=== PATIENT | male | born 1970 | race Caucasian/White ===

== ENCOUNTER 2020-12-08 08:05 | Outpatient (REF) | payer MEDICAID, SELFPAY ==
[2020-12-08 11:52] LABS: Alanine Aminotransferase 32 U/L (0-40); Albumin Level 4.7 g/dL (3.5-5.0); Alkaline Phosphatase 96 U/L (39-117); Anion Gap 17 (12-20); Aspartate Amino Transferase 21 U/L (5-37); Bilirubin Total 0.6 mg/dL (0.0-1.0); Blood Urea Nitrogen 21 mg/dL (9-16); Calcium 9.4 mg/dL (8.4-10.2); Carbon Dioxide 26 mmol/L (22-29); Chloride 98 mmol/L (96-108); Cholesterol 179 mg/dL; Estimated Glomerular Filt Rate > 60; Glucose Fasting 369 mg/dL (60-99); HDL Cholesterol 38 mg/dL; LDL Cholesterol Calculated 86 mg/dl; Potassium 4.7 mmol/L (3.3-5.1); Sodium 136 mmol/L (135-145); Total Protein 7.3 g/dL (6.5-8.0); Triglycerides 275 mg/dL
[2020-12-08 11:53] LABS: Microalbum/Creatinine Ratio Ur 49.5 ug/mg cr
[2020-12-08 11:56] LABS: Hemoglobin A1c % > 14.0 %
[2020-12-08 11:57] LABS: Prostate Specific Antigen Scr 0.29 ng/mL (<0.05-4.0); TSH reflex Free T4 0.89 uIU/mL (0.32-4.0)
== END 2020-12-08 08:06 | disposition home or self-care (01) ==
LOC: HO.HMGCLDS 08:05
PROVIDERS: PCP Nurse Practitioner Family; Visit Provider Nurse Practitioner Family
DX: E11.9 Type 2 diabetes mellitus without complications (principal); N39.43 Post-void dribbling; Z12.5 Encounter for screening for malignant neoplasm of prostate
CPT/HCPCS: 36415; 80053; 80061; 82043; 83036; 84153; 84443

== ENCOUNTER 2021-12-10 11:03 | Outpatient (REF) | payer OTHER, SELFPAY ==
[2021-12-10 13:55] LABS: Appearance Urine CLEAR; Color Urine YELLOW; Glucose Urine UA >=1000 MG/DL (NEG); Leukocyte Esterase Urine NEG (NEG); Nitrite Urine NEG (NEG); Specific Gravity - Urine 1.025 (1.005-1.025); Urine Blood NEG (NEG); Urine Ketones 15 MG/DL (NEG); Urine Protein NEG (NEG-TRACE)
[2021-12-10 14:00] LABS: Estimated Average Glucose 352 mg/dL; Hemoglobin A1c % 13.9 %
[2021-12-10 14:05] LABS: Alanine Aminotransferase 25 U/L (0-40); Albumin Level 4.3 g/dL (3.5-5.0); Alkaline Phosphatase 74 U/L (39-117); Anion Gap 11 (12-20); Aspartate Amino Transferase 18 U/L (5-37); Bilirubin Total 0.7 mg/dL (0.0-1.0); Blood Urea Nitrogen 12 mg/dL (9-16); Calcium 9.4 mg/dL (8.4-10.2); Carbon Dioxide 29 mmol/L (22-29); Chloride 102 mmol/L (96-108); Cholesterol 209 mg/dL; Estimated Glomerular Filt Rate > 60; Glucose Fasting 304 mg/dL (60-99); HDL Cholesterol 39 mg/dL; LDL Cholesterol Calculated 141 mg/dl; Potassium 4.2 mmol/L (3.3-5.1); Sodium 138 mmol/L (135-145); Total Protein 6.7 g/dL (6.5-8.0); Triglycerides 148 mg/dL
[2021-12-10 14:08] LABS: RBC Urine 0-2 /HPF (0); Squamous Epithelial Cell Urine TRACE /LPF; WBC Urine 0-2 /HPF (0-4)
[2021-12-10 14:09] LABS: Creatinine Urine 78.74 mg/dL; Microalbum/Creatinine Ratio Ur 10.1 ug/mg cr
[2021-12-10 14:31] LABS: TSH reflex Free T4 1.11 uIU/mL (0.32-4.0)
== END 2021-12-10 11:04 | disposition home or self-care (01) ==
LOC: HO.HMGCLDS 11:03
PROVIDERS: Visit Provider Nurse Practitioner Family
DX: Z12.5 Encounter for screening for malignant neoplasm of prostate (principal); E11.65 Type 2 diabetes mellitus with hyperglycemia
CPT/HCPCS: 36415; 80053; 80061; 81001; 81003; 82043; 83036; 84153; 84443

== ENCOUNTER → 2022-02-10 11:35 | Outpatient (BNVA) | payer OTHER, SELFPAY | PROVIDERS: PCP Nurse Practitioner Family; Visit Provider Physician Assistant | DX: Z01.818 Encounter for other preprocedural examination (principal); Z86.010 Personal history of colon polyps; Z80.0 Family history of malignant neoplasm of digestive organs | CPT/HCPCS: 99202 ==

== ENCOUNTER 2022-03-11 12:06 | Outpatient (REF) | payer OTHER, SELFPAY ==
[2022-03-11 13:58] LABS: MANUAL DIFF FLAG NO
[2022-03-11 14:14] LABS: Appearance Urine CLEAR; Color Urine YELLOW; Glucose Urine UA >=1000 MG/DL (NEG); Leukocyte Esterase Urine NEG (NEG); Nitrite Urine NEG (NEG); Specific Gravity - Urine 1.025 (1.005-1.025); Urine Blood NEG (NEG); Urine Ketones NEG (NEG); Urine Protein NEG (NEG-TRACE)
[2022-03-11 14:25] LABS: Basophils Absolute Auto 0.1 X10*3/uL (0.0-0.2); Eosinophils Absolute Auto 0.1 X10*3/uL (0.0-0.4); Eosinophils Percent Auto 0.9 % (0-4); Hematocrit 49.6 % (42.0-52.0); Hemoglobin 16.8 g/dl (14.0-18.0); Imm Gran Abs Auto 0.02 X10*3/uL (0.00-0.03); Imm Gran Pct Auto 0.2 % (0.0-0.4); Lymphocytes Absolute Auto 2.6 X10*3/uL (1.2-4.9); Lymphocytes Percent Auto 32.6 % (20-40); Mean Corpuscular HGB Conc 33.9 g/dl (31.0-36.0); Mean Corpuscular Hemoglobin 30.7 pg (27.0-33.0); Mean Corpuscular Volume 90.5 fL (80.0-98.0); Mean Platelet Volume 10.8 fL (9.4-12.4); Monocytes Absolute Auto 0.6 X10*3/uL (0.1-1.2); Monocytes Percent Auto 7.1 % (2-11); Neutrophils Absolute Auto 4.7 x10*3/uL (2.0-8.3); Neutrophils Percent Auto 58.2 % (45-73); Platelet Count 298 X10*3/uL (160-400); Red Blood Count 5.48 X10*6/uL (4.60-5.80); Red Cell Distribution Width 12.3 % (11.0-16.0); White Blood Count 8.1 X10*3/uL (4.8-10.8)
[2022-03-11 14:29] LABS: Estimated Average Glucose 206 mg/dL; Hemoglobin A1c % 8.8 %
[2022-03-11 14:32] LABS: RBC Urine 0 /HPF (0); Squamous Epithelial Cell Urine TRACE /LPF; WBC Urine 0-2 /HPF (0-4)
[2022-03-11 14:39] LABS: Alanine Aminotransferase 23 U/L (0-40); Albumin Level 4.7 g/dL (3.5-5.0); Alkaline Phosphatase 62 U/L (39-117); Anion Gap 13 (12-20); Aspartate Amino Transferase 19 U/L (5-37); Bilirubin Total 0.6 mg/dL (0.0-1.0); Blood Urea Nitrogen 14 mg/dL (9-16); Calcium 9.8 mg/dL (8.4-10.2); Carbon Dioxide 26 mmol/L (22-29); Chloride 106 mmol/L (96-108); Cholesterol 141 mg/dL; Estimated Glomerular Filt Rate > 60; Glucose Fasting 117 mg/dL (60-99); HDL Cholesterol 42 mg/dL; LDL Cholesterol Calculated 82 mg/dl; Potassium 4.4 mmol/L (3.3-5.1); Sodium 141 mmol/L (135-145); Total Protein 7.2 g/dL (6.5-8.0); Triglycerides 86 mg/dL
[2022-03-11 15:01] LABS: TSH reflex Free T4 1.78 uIU/mL (0.32-4.0)
== END 2022-03-11 12:07 | disposition home or self-care (01) ==
LOC: HO.HMGCLDS 12:06
PROVIDERS: Visit Provider Nurse Practitioner Family
DX: E11.65 Type 2 diabetes mellitus with hyperglycemia (principal)
CPT/HCPCS: 36415; 80053; 80061; 81001; 81003; 83036; 84443; 85025

== ENCOUNTER 2022-05-10 08:11 | Outpatient (REF) | payer OTHER, SELFPAY ==
[2022-05-10 11:45] LABS: Appearance Urine Turbid; Color Urine Yellow; Glucose Urine UA 500 mg/dL (Negative); Leukocyte Esterase Urine Negative (Negative); Nitrite Urine Negative (Negative); PH 5.5 (5.0-9.0); Specific Gravity - Urine 1.025 (1.005-1.025); Urine Blood Negative (Negative); Urine Ketones Negative (Negative); Urine Protein Negative (Neg-Trace)
== END 2022-05-10 08:12 | disposition home or self-care (01) ==
LOC: HO.HMGCLDS 08:11
PROVIDERS: PCP Nurse Practitioner Family; Visit Provider Nurse Practitioner Family
DX: E11.65 Type 2 diabetes mellitus with hyperglycemia (principal)
CPT/HCPCS: 81003

== ENCOUNTER 2022-09-27 09:10 | Day surgery (SDC) | payer OTHER, SELFPAY ==
[2022-09-21 09:44] VITALS: BMI 26.9
[2022-09-27 09:39] VITALS: BP 133/75; PULSE 81; RESP 16; TEMP 36.2; O2SAT 98; BMI 27.1
--- NOTE | 2022-09-27 09:50 | HO.ANESPROP2 ---
HPI - Anesthesia Eval Consult details Narrative: 52 yo male patient for screening colonoscopy [facility] Active Problems Active Problems: All Active Problems (Updated 05/12/22 @ 08:34 by Kota Mcclure [facility]) Screening PSA (prostate specific antigen) (Acute) Dribbling following urination (Acute) Uncontrolled diabetes mellitus (Acute) Screening for colon cancer (Acute) History of adenomatous polyp of colon (Acute) Weak urinary stream (Acute) Type 2 diabetes mellitus (Acute) Past Medical History Medical History (Updated 05/12/22 @ 08:34 by Kota Mcclure [facility]) Dyslipidemia Sciatica, right side Type 2 diabetes mellitus Family History Family History Father Colon cancer Alzheimer disease Enlarged prostate Mother Diabetes Family history of problems with anesthesia: No Surgical History Surgical History (Updated 09/21/22 @ 09:43 by Josephine Mcdaniel RN) H/O colonoscopy History of esophagogastroduodenoscopy (EGD) History of Problems with Anesthesia: No Social History Social History Housing: House Alcohol intake: never Patient Tobacco Use Status: Never used Tobacco e-Cigarette/Vaping Use: Never Used Second Hand Smoke Exposure: Yes Use of substances other than those prescribed or required for medical reasons: No Advance Directives: No Advance Directives Information Provided: Yes service: No Current occupational status: employed 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[employer] Current occupational exposures/hazards: No Cognitive needs: No Hearing needs: No Vision needs: No Meds Allergies Allergy/AdvReac Type Severity Reaction Status Date / Time No Known Allergies Allergy Verified 03/07/22 10:58 [No Known Allergies*] Active Medications: Current Medications Lactated Ringer's (Lr) 1,000 mls @ 50 mls/hr IVCONT .Q20H [facility] Home Medications Medication Instructions Recorded Confirmed Last Taken Type metformin 1,000 mg tablet 1,000 mg PO BID 06/08/21 09/21/22 Unknown History Exam Exam Date and Time: September 27, 2022 0950 Height,Weight and Vital Signs: Height 5 ft 10 in Weight 85.729 kg Last Vital Signs Temp 97.2 F 01/31/23 09:39 Pulse 81 09/27/22 09:39 Resp 16 09/27/22 09:39 BP 133/75 09/27/22 09:39 Pulse Ox 98 09/27/22 09:39 O2 Del Method 09/27/22 09:39 Pertinent Lab Results Pertinent Lab Results: Lab Results 09/27/22 Range/Units 09:28 POC Glucose 241 H (60-115) mg/dL Airway Mallampati Class: II TM Dist: >3cm Neck ROM: Full Loose/Missing/Broken Teeth: No (Denies broken, loose, missing teeth) Heart: RRR Lungs: CTAB Assessment and Plan Assessment Anesthesia Assessment: Anesthesia Plan Discussed and Chart Reviewed Final Anesthetic Review Family History of Problems with Anesthesia: No History of Problems with Anesthesia: No NPO: Yes ASA Class: II Final Preanesthetic Review: No Changes in Pt Med Stat, Meds/Allgs Chart Reviewed, Consent Obtained/Reviewed and Anes Risks/Benef Reviewed Patient Risk: Intermediate Procedure Risk: Low Assessment/Block/Sedation in SS: Assess/Block/Sedation-SS Anesthetic Plan Anesthetic Plan: MAC: Disposition: Standard PACU
[2022-09-27] MEDS: Lactated Ringers 1,000 ML 50 ML IVCONT (09:51)
--- NOTE | 2022-09-27 09:51 | MHC.SHP ---
Pre-Procedural Eval Section A Date of Service: 09/27/22 Section B Chief Complaint: hx colonic polyps,screening Relevant Family History (Specify if Yes): No Relevant Social History: None Present Medications: see Short Stay Collaborative assessment Medical History: Significant History (Dyslipidemia Sciatica, right side) History of Previous Operations: No relevant previous surgery Allergies: Allergies Allergy/AdvReac Type Severity Reaction Status Date / Time No Known Allergies Allergy Verified 03/07/22 10:58 [No Known Allergies*] Review of Systems Sugical H&P ROS: Negative: Constitution, Cardiovascular, Respiratory, Neurological, Psychiatric, Hem-Onc, Allergic/Immunologic, Gastrointestinal, Genitourinary, Musculoskeletal, Integumentary, Endocrine and Eyes/Ears/Nose/Throat Exam Surgical H&P Exam: Normal: HEENT, Normal: Heart, Normal: Lungs, Normal: Extremities, Normal: Abdomen, Normal: Skin and Normal: Neurological Plan Diagnosis/Plan: Unchanged I have reviewed the history and physical and performed a pertinent physical examination on my patient. No changes have occurred unless specified. Time Spent With Patient Time: Total time managing care of this patient today ____ minutes.
[2022-09-27 09:59] LABS: Glucose, Whole Blood 241 mg/dL (60-115)
--- NOTE | 2022-09-27 10:04 | P.OP_ITS ---
Operative Note Operative Note Date of Service: 09/27/22 Narrative: Operative Information Procedure Description: Colonoscopy Indication: screening, hx of polyps Anesthesia: MAC COLONOSCOPY Instrument: Olympus variable stiffness adult scope 190L Colonoscopy Monitoring: Vital signs and clinical assessment, continuous EKG monitoring, Pulse oximetry, Carbon Dioxide monitoring and blood pressure monitoring were done throughout the procedure. Colon withdrawal time was 11 minutes. Procedure: The patient was placed in the left lateral decubitis position and pre-procedure medications were administered. After a digital rectal examination of the ano-rectum, the video colonoscope was inserted into the rectum and advanced through the colon to the cecum/TI. The colonoscope was slowly withdrawn in a retrograde panoramic fashion and the colon mucosa was carefully examined including a retroflexed view of the rectum. Findings and interventions are described below. Procedure Difficulty: easy Findings: Terminal Ileum-normal Cecum:normal Ascending Colon: normal Transverse Colon -normal Descending Colon:normal Sigmoid Colon: 5-7 mm sessile polyp removed with cold forceps Rectum: Retroflexion with small internal hemorrhoids, grade I, 7-8 mm sessile polyp removed with cold forceps Anorectum - normal Colon preparation: [place] Bowel Preparation Scale Right colon; 2 Transverse colon: 2 Left colon; 1-2 (0 = Unprepared colon segment with mucosa not seen due to solid stool that cannot be cleared. 1 = Portion of mucosa of the colon segment seen, but other areas of the colon segment not well seen due to staining, residual stool and/or opaque liquid. 2 = Minor amount of residual staining, small fragments of stool and/or opaque liquid, but mucosa of colon segment seen well. 3 = Entire mucosa of colon segment seen well with no residual staining, small fragments of stool or opaque liquid) Impression and Post Procedure Diagnosis: polyps internal hemorrhoids Plan: High fiber diet leaflet Avoid straining at stool, epsom salts and sitz bath, anusol supps or cream Repeat Colonoscopy in 2-3 years due to small polyps and fair prep on the left side or earlier if clinically indicated Above findings were reviewed with the patient and relevant handouts were provided if indicated.
[2022-09-27 10:26] VITALS: BP 104/63; PULSE 76; RESP 19; TEMP 36.6; O2SAT 98
[2022-09-27 10:41] VITALS: BP 122/82; PULSE 75; RESP 14; TEMP 36.2; O2SAT 98
== END 2022-09-27 11:16 | disposition home or self-care (01) ==
PROVIDERS: PCP Nurse Practitioner Family; Visit Provider Internal Medicine Gastroenterology
PROC: 0DJD8ZZ Inspection of Lower Intestinal Tract, Via Natural or Artificial Opening Endoscopic (ICD-10-PCS; CPT 45378; principal; 2022-09-27 10:20)
DX: Z12.11 Encounter for screening for malignant neoplasm of colon (principal); Z86.010 Personal history of colon polyps; Z80.0 Family history of malignant neoplasm of digestive organs; D12.5 Benign neoplasm of sigmoid colon; D12.8 Benign neoplasm of rectum; K64.0 First degree hemorrhoids; E78.5 Hyperlipidemia, unspecified; E11.8 Type 2 diabetes mellitus with unspecified complications; Z79.4 Long term (current) use of insulin; Z79.899 Other long term (current) drug therapy
CPT/HCPCS: 45380; 82947; 88305

== ENCOUNTER 2022-11-02 14:04 | Outpatient (REF) | payer OTHER, SELFPAY ==
[2022-11-02 16:27] LABS: MANUAL DIFF FLAG NO
[2022-11-02 16:32] LABS: Basophils Absolute Auto 0.1 X10*3/uL (0.0-0.2); Basophils Percent Auto 0.9 % (0-2); Eosinophils Absolute Auto 0.1 X10*3/uL (0.0-0.4); Eosinophils Percent Auto 1.7 % (0-4); Hematocrit 47.7 % (42.0-52.0); Hemoglobin 16.7 g/dl (14.0-18.0); Imm Gran Abs Auto 0.02 X10*3/uL (0.00-0.03); Imm Gran Pct Auto 0.2 % (0.0-0.4); Lymphocytes Absolute Auto 2.8 X10*3/uL (1.2-4.9); Lymphocytes Percent Auto 33.7 % (20-40); Mean Corpuscular Volume 88.5 fL (80.0-98.0); Mean Platelet Volume 11.2 fL (9.4-12.4); Monocytes Absolute Auto 0.5 X10*3/uL (0.1-1.2); Neutrophils Absolute Auto 4.8 x10*3/uL (2.0-8.3); Neutrophils Percent Auto 57.5 % (45-73); Platelet Count 277 X10*3/uL (160-400); Red Blood Count 5.39 X10*6/uL (4.60-5.80); Red Cell Distribution Width 12.1 % (11.0-16.0); White Blood Count 8.4 X10*3/uL (4.8-10.8)
[2022-11-02 17:07] LABS: Alanine Aminotransferase 33 U/L (0-40); Albumin Level 4.4 g/dL (3.5-5.0); Alkaline Phosphatase 60 U/L (39-117); Anion Gap 13 (12-20); Aspartate Amino Transferase 23 U/L (5-37); Bilirubin Total 0.9 mg/dL (0.0-1.0); Blood Urea Nitrogen 12 mg/dL (9-16); Calcium 9.4 mg/dL (8.4-10.2); Carbon Dioxide 28 mmol/L (22-29); Chloride 103 mmol/L (96-108); Cholesterol 127 mg/dL; Estimated Glomerular Filt Rate > 60; Glucose Fasting 195 mg/dL (60-99); HDL Cholesterol 34 mg/dL; LDL Cholesterol Calculated 67 mg/dl; Potassium 4.3 mmol/L (3.3-5.1); Sodium 140 mmol/L (135-145); Total Protein 6.5 g/dL (6.5-8.0); Triglycerides 132 mg/dL
[2022-11-02 17:20] LABS: Appearance Urine Clear; Color Urine Dark Yellow; Glucose Urine UA 100 mg/dL (Negative); Leukocyte Esterase Urine Negative (Negative); Nitrite Urine Negative (Negative); PH 6.5 (5.0-9.0); Specific Gravity - Urine >= 1.030 (1.005-1.025); Urine Blood Negative (Negative); Urine Ketones Trace mg/dL (Negative); Urine Protein Negative (Neg-Trace)
[2022-11-02 17:27] LABS: Prostate Specific Antigen Scr 0.39 ng/mL (<0.05-4.0)
[2022-11-02 17:56] LABS: Creatinine Urine 252.07 mg/dL; Microalbum/Creatinine Ratio Ur 6.7 ug/mg cr
== END 2022-11-02 14:05 | disposition home or self-care (01) ==
LOC: HO.HMGCLDS 14:04
PROVIDERS: PCP Nurse Practitioner Family; Visit Provider Nurse Practitioner Family
DX: Z12.5 Encounter for screening for malignant neoplasm of prostate (principal); E11.9 Type 2 diabetes mellitus without complications
CPT/HCPCS: 36415; 80053; 80061; 81003; 82043; 84153; 84443; 85025

== ENCOUNTER 2023-03-03 13:40 | Outpatient (REF) | payer OTHER, SELFPAY | END 2023-03-03 13:41 | disposition home or self-care (01) | LOC: HO.LAB 13:40 | PROVIDERS: PCP Nurse Practitioner Family; Visit Provider Nurse Practitioner Family | DX: E11.65 Type 2 diabetes mellitus with hyperglycemia (principal) | CPT/HCPCS: 36415; 80053; 80061; 81001; 83036; 85025 ==

== ENCOUNTER 2023-03-08 15:13 | Outpatient (REF) | payer OTHER, SELFPAY ==
--- NOTE | ~2023-03-08 | US_ITS ---
EXAMINATION: US ABDOMEN COMPLETE CLINICAL INFORMATION: Abnormal levels of other serum enzymes. COMPARISON: Renal ultrasound 12/19/2014. TECHNIQUE: Real-time imaging of the abdominal viscera. FINDINGS: PANCREAS: Normal. ABDOMINAL AORTA: The proximal, mid, and distal segments are normal in caliber. INFERIOR VENA CAVA: Visualized portions are normal. LIVER: The liver is normal in size. The liver contour is normal. Increased hepatic echogenicity which can be seen in the setting of hepatic steatosis or underlying liver disease. No focal hepatic lesion. There is no intrahepatic biliary duct dilatation seen. GALLBLADDER: Normal. The gallbladder is physiologically distended without evidence of stones, sludge, polyps, wall thickening or pericholecystic fluid. COMMON BILE DUCT: Normal in caliber measuring 0.3 cm in diameter. RIGHT KIDNEY: Normal. No hydronephrosis. No renal calculi or focal parenchymal lesions. The kidney measures 10.5 cm in maximum dimension. LEFT KIDNEY: Normal. No hydronephrosis. No renal calculi or focal parenchymal lesions. The kidney measures 12.3 cm in maximum dimension. SPLEEN: Normal. The spleen measures 11.0 cm in maximum dimension. FREE FLUID: None. US/US abdomen complete IMPRESSION: Increased hepatic echogenicity which can be seen in the setting of hepatic steatosis or underlying liver disease.
== END 2023-03-08 15:14 | disposition home or self-care (01) ==
LOC: HO.HMGCX 15:13
PROVIDERS: Visit Provider Nurse Practitioner Family
DX: R74.8 Abnormal levels of other serum enzymes (principal)
CPT/HCPCS: 76700

== ENCOUNTER 2023-05-08 13:19 | Outpatient (AMB) | payer OTHER, SELFPAY ==
[2023-05-08 13:56] VITALS: BP 126/80; PULSE 101; O2SAT 96; BMI 29.3
--- NOTE | 2023-05-08 13:56 | A.OFFPC_ITS ---
Vital Signs 05/08/23 13:56 Height 5 ft 10 in Weight 204 lb 6 oz BMI 29.3 BP 126/80 Blood Pressure Location Rt brachial Position Sitting Pulse 101 H Pulse Source Pulse Oximeter Pulse Oximetry (%) 96 Oxygen Delivery Method Room Air Intake Visit Reasons: PE Allergies No Known Allergies [No Known Allergies*] Allergy (Verified 05/08/23 13:59) Medication List - Last Reconciled 05/08/23 by CHITRA ErnstP- alcohol swabs (Alcohol Prep Pads) 1 pad topical BID atorvastatin 10 mg PO BEDTIME 90 days blood sugar diagnostic (FreeStyle Lite Strips) Use to check blood sugar twice daily, fasting blood sugar in morning and a random sugar during the day blood-glucose meter (FreeStyle Lite Meter kit) Use to check blood sugar twice daily, fasting blood sugar in morning and a random sugar during the day lancets (FreeStyle Lancets) Use to check blood sugar twice daily, fasting blood sugar in morning and a random sugar during the day Lantus Solostar U-100 Insulin (insulin glargine) 50 units (0.5 mL) subcut QPM NS lisinopril 5 mg PO DAILY 90 days metformin 1,000 mg PO BID multivitamin (Daily Multi-Vitamin tablet) 1 tab PO DAILY pen needle, diabetic (Pen Needle) inject once a day semaglutide (Ozempic) 1 mg (0.8 mL) subcut QWEEK 30 days Tobacco use date assessed: 05/08/23 Dental Screening Dental Screen Date: 05/08/23 Did you have a dental visit in the last 12 months?: No Did you have a dental problem in the last 6 months where you did not have access to dental care?: No Was dental information given to patient?: No HPI PE HPI Details Pt is here for a PE. Will order labs. Colon screen is up to date. PSA is up to date. Denies dribbling with urination and nocturia, though he does not feel like he is emptying his bladder completely. Pt is a diabetic, on an CECILY and a statin. Last A1C was 10.2, microalbumin is up to date. Denies polyuria, polydipsia, and neuropathy. Pt denies any signs and symptoms of hypoglycemia and does know how to correct it. Will increase lantus from 58 units to 66 units and ozempic from 1mg to 2mg. Will also start novolog 5 units around meals. Eye exam is scheduled. 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 David Farooq, Daniela Buchanan, Johnathan De Souza and colleagues, with an educational sarah from [employer]. Review of Systems Const Denies chills and Denies fever(s) Eyes Denies blurry vision ENT Denies vertigo, Denies dizziness and Denies sore throat Card Denies chest pain at rest, Denies chest pain with activity, Denies diaphoresis, Denies dyspnea and Denies dyspnea on exertion Resp Denies cough, Denies dyspnea, Denies dyspnea on exertion and Denies wheezing GI Denies abdominal pain, Denies melena, Denies hematochezia, Denies constipation, Denies diarrhea and Denies loose stools Denies hematuria Musc Denies numbness and Denies tingling Skin/Breast Denies lesions Neuro Denies vertigo, Denies dizziness, Denies numbness and Denies tingling Psych Denies anxiety, Denies depression, Denies homicidal ideation, Denies suicidal ideation and Denies other (substance abuse) Aller/Immun Denies wheezing Physical exam (Primary Care) Vital Signs: Last Vital Signs Pulse 101 H 09/11/23 13:56 BP 126/80 05/08/23 13:56 Pulse Ox 96 05/08/23 13:56 Oxygen Delivery Method Room Air 05/08/23 13:56 BMI result Body Mass Index 29.3 Tobacco/Smoking Status: Tobacco use Status Tobacco use date assessed 05/08/23 05/08/23 14:01 Patient Tobacco Use Status Never used Tobacco 05/08/23 14:01 e-Cigarette/Vaping Use Never Used 05/08/23 14:01 Thrive Assessment: Date of Thrive Assessment Date Thrive assessed 12/08/21 05/08/23 14:01 Const General: cooperative Nutritional Appearance: well nourished Orientation/consciousness: patient oriented x3 HENMT Head: Yes normal to inspection, Yes normocephalic and Yes atraumatic Ears: TM's normal bilaterally Eyes General: appearance normal, both eyes and all related structures Alignment and Position: alignment normal and position normal Neck Neck: Yes normal visual inspection and Yes no lymphadenopathy Thyroid: Thyroid normal Resp Effort & Inspection: normal respiratory effort Auscultation: clear to auscultation bilaterally Cardio Rate: regular rate Rhythm: regular rhythm Heart sounds: S1 normal heart sound present, S2 normal heart sound present and no murmurs GI Palpation (GI): Soft to palpation and nontender Auscultation: normal bowel sounds Other: ARLENE: prostate enlarged, smooth central groove, no nodules Male General Exam: Yes normal external exam Penis: normal penis Scrotum: scrotum normal, testes descended bilaterally and no inguinal hernias Testes: no testicular mass Skin Rashes: no rashes Neuro General: patient oriented x3, moves all extremities, no focal motor deficits and deep tendon reflexes 2+ bilaterally Romberg Test: Negative Extrem Other: bilat feet: + sensation with use of monofilament Psych Appearance: grossly normal Mental Status: mental status grossly normal Speech and movement: Normal speech and movement present Affect: normal affect Attitude: cooperative Thought process: Normal thought process present Thought content: Normal thought content present Insight: Good insight present (Psych) Judgement: Good judgement present (Psych) Assessment and Plan Assessment & Plan (1) Uncontrolled diabetes mellitus: Code(s): E11.65 - Type 2 diabetes mellitus with hyperglycemia Plan: Labs ordered, lantus and ozempic increased, novolog added Plan The patient agreed to the use of a medical imaging specialist for this encounter. Scribed for Kota Mcclure, [facility]- by April Sanchez, medical imaging specialist, on 05/08/2023 at 14:05 EST. Orders: Orders Complete Blood Count Auto Diff Today E11.65 - Type 2 diabetes mellitus with hyperglycemia Comprehensive [place]. Panel Fast Today E11.65 - Type 2 diabetes mellitus with hyperglycemia TSH reflex Free T4 Today E11.65 - Type 2 diabetes mellitus with hyperglycemia UA CC w/rflx Micro + Cult Today E11.65 - Type 2 diabetes mellitus with hyperglycemia Lipid Panel Today E11.65 - Type 2 diabetes mellitus with hyperglycemia Medications: New insulin aspart U-100 (Novolog PenFill U-100 Insulin aspart) 5 units (0.05 mL) subcut TID 15 mL 0RF Changed From Lantus Solostar U-100 Insulin (insulin glargine) 50 units (0.5 mL) subcut QPM 45 mL 1RF NS E11.9 - Type 2 diabetes mellitus without complications To Lantus Solostar U-100 Insulin (insulin glargine) 66 units (0.66 mL) subcut QPM 45 mL 1RF NS E11.9 - Type 2 diabetes mellitus without complications From semaglutide (Ozempic) for 4 doses 1 mg (0.8 mL) subcut QWEEK 30 days 4 mL 0RF To semaglutide for 4 doses 2 mg (0.75 mL) subcut QWEEK 30 days 3.75 mL 0RF Coding Level of Care Code Est Pt Prev Care 40-64y(28371) Diagnoses Uncontrolled diabetes mellitus E11.65
== END 2023-05-08 15:09 | disposition home or self-care (01) ==
PROVIDERS: PCP Nurse Practitioner Family; Visit Provider Nurse Practitioner Family
DX: Z00.00 Encounter for general adult medical examination without abnormal findings (principal); E11.65 Type 2 diabetes mellitus with hyperglycemia
CPT/HCPCS: 99396

== ENCOUNTER 2023-08-17 09:51 | Outpatient (AMB) | payer OTHER, SELFPAY ==
--- NOTE | 2023-08-17 10:02 | A.OFFPC_ITS ---
Vital Signs 08/17/23 10:05 Weight 204 lb BP 136/80 Blood Pressure Location Lt brachial Position Sitting Pulse 83 Pulse Source Pulse Oximeter Pulse Oximetry (%) 98 Oxygen Delivery Method Room Air Intake Visit Reasons: 3 MON FUP NEEDS PHQ9 +THRIVE Intake Note: Patient is here today for diabetes follow up Allergies No Known Allergies [No Known Allergies*] Allergy (Verified 08/17/23 10:06) Medication List - Last Reconciled 08/17/23 by STANISLAW Ernst- alcohol swabs (Alcohol Prep Pads) 1 pad topical BID atorvastatin 10 mg PO BEDTIME 90 days blood sugar diagnostic (FreeStyle Lite Strips) Use to check blood sugar twice daily, fasting blood sugar in morning and a random sugar during the day blood-glucose meter (FreeStyle Lite Meter kit) Use to check blood sugar twice daily, fasting blood sugar in morning and a random sugar during the day insulin aspart U-100 (Novolog PenFill U-100 Insulin aspart) 5 units (0.05 mL) subcut TID lancets (FreeStyle Lancets) Use to check blood sugar twice daily, fasting blood sugar in morning and a random sugar during the day Lantus Solostar U-100 Insulin (insulin glargine) 66 units (0.66 mL) subcut QPM NS lisinopril 5 mg PO DAILY 90 days metformin 1,000 mg PO BID multivitamin (Daily Multi-Vitamin tablet) 1 tab PO DAILY pen needle, diabetic (Pen Needle) inject once a day semaglutide 2 mg (0.75 mL) subcut QWEEK 30 days Tobacco use date assessed: 05/08/23 Dental Screening Dental Screen Date: 08/17/23 Did you have a dental visit in the last 12 months?: No Did you have a dental problem in the last 6 months where you did not have access to dental care?: No Was dental information given to patient?: No HPI 3 MON FUP NEEDS PHQ9 +THRIVE HPI Details Pt is a diabetic, on an CECILY and a statin. A1C in office today is 10.6. Microalbumin is up to date. Denies polyuria, polydipsia, and neuropathy. Pt denies any signs and symptoms of hypoglycemia and does know how to correct it. Pt reports that he has not been taking his novolog around meals. He is also not taking his lantus every day. Educated pt on the importance of staying on these. Due for eye exam, pt will schedule this. 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 1. Little interest or pleasure in doing things: not at all 2. Feeling down, depressed, or hopeless: several days 3. Trouble falling or staying asleep, or sleeping too much: several days 4. Feeling tired or having little energy: more than half the days 5. Poor appetite or overeating: not at all 6. Feeling bad about yourself - or that you are a failure or have let yourself or your family down: more than half the days 7. Trouble concentrating on things, such as reading the newspaper or watching television: not at all 8. Moving or speaking so slowly that other people could have noticed. Or the opposite - being so fidgety or restless that you have been moving around a lot more than usual: not at all 9. Thoughts that you would be better off or of hurting yourself in some way: not at all Total score: 6 Depression Screening Interpretation: Negative Depression Screening Done: Yes 01301 - PHQ-9 Billing: Yes Source: Developed by Drs. David Farooq, Daniela Buchanan, Johnathan De Souza and colleagues, with an educational sarah from [employer]. Thrive Questionnaire Date Thrive assessed: 08/17/23 I am a: Patient What is your living situation today?: I have a steady place to live Within the past 12 months, did the food you bought not last and you didn't have the money to get more?: Never true Within the past 12 months, did you worry whether your food would run out before you got money to buy more?: Sometimes True Do you have trouble paying for medicines?: No Do you have trouble getting transportation to medical appointments?: No Do you have trouble paying your heating and electricity bill?: Yes Do you have trouble taking care of your child, family member or friend?: Yes Do you have trouble with day-to-day activities such as bathing, preparing meals, shopping, managing finances, etc.?: Yes Are you currently unemployed and looking for a job?: No Are you interested in more education?: No AUDIT C Alcohol Use Questionnaire (AUDIT-C) 1. How often do you have a drink containing alcohol?: Never 3. How often do you have six or more drinks on one occasion?: Never Total Score: 0 Score Reviewed/Action Taken: No CORINE-7 AMB Questionnaire CORINE-7 Date CORINE - 7 assessed: 08/17/23 Feeling nervous, anxious, or on edge: 1 = Several days Not being able to stop or control worryin = Several days Worrying too much about different things: 1 = Several days Trouble relaxin = Several days Being so restless that it is hard to sit still: 0 = Not at all Becoming easily annoyed or irritable: 0 = Not at all Feeling afraid as if something awful might happen: 0 = Not at all Total CORINE-7 score (0-4 normal; 5-9 mild; 10-14 moderate; 15-21 severe): 4 Source: Developed by Drs. David Farooq, Johnathan Vanessa and colleagues, with an educational sarah from [employer]. CORINE-7 Assessment Billing CORINE-7 Assessment Tool: CORINE-7 Assessment 70348 Review of Systems Const Reports as per HPI Physical exam (Primary Care) Vital Signs: Last Vital Signs Pulse 83 08/17/23 10:05 BP 136/80 08/17/23 10:05 Pulse Ox 98 08/17/23 10:05 Oxygen Delivery Method Room Air 08/17/23 10:05 Tobacco/Smoking Status: Tobacco use Status Tobacco use date assessed 05/08/23 08/17/23 10:04 Patient Tobacco Use Status Never used Tobacco 08/17/23 10:04 e-Cigarette/Vaping Use Never Used 08/17/23 10:04 Depression Screening Interpretation: Negative Thrive Assessment: Date of Thrive Assessment Date Thrive assessed 12/08/21 08/17/23 10:04 Const General: cooperative Orientation/consciousness: patient oriented x3 Resp Effort & Inspection: normal respiratory effort Auscultation: clear to auscultation bilaterally Cardio Rate: regular rate Rhythm: regular rhythm Heart sounds: S1 normal heart sound present and S2 normal heart sound present Neuro General: patient oriented x3 Psych Appearance: grossly normal Mental Status: mental status grossly normal Speech and movement: Normal speech and movement present Affect: normal affect Attitude: cooperative Thought process: Normal thought process present Thought content: Normal thought content present Insight: Good insight present (Psych) Judgement: Good judgement present (Psych) Results AMB Hemoglobin A1c AMB Hemoglobin A1c 10.6 % Last Edit by CHRIS Reynoso on 08/17/23 10:20 Immunizations pneumoc 20-phyllis conj-dip cr(PF) 0.5 mL IM syringe Performing Provider: MEDINA Ernst Performing Location: [facility] Administered by: CHRIS Reynoso on 08/17/23 10:46 Dose Route Admin Location Dispensed Lot Number Expiration Date [facility] Attorney Law Clerk 0.5 mL IM Right Deltoid 0.5 mL [id number] 09/28/24 [place] [employer] VIS Given Date VIS Provided VIS Publication Date 08/17/23 Single Vaccine 21 Eligibility Eligibility Date Funding Source Not [facility] Eligible 08/17/23 Private Results Reviewed Results Reviewed: Laboratory Last Values Hgb A1c (Clinic) 10.6 % (4.0-6.0) H 08/17/23 10:19 Assessment and Plan Assessment & Plan (1) Type 2 diabetes mellitus: Code(s): E11.9 - Type 2 diabetes mellitus without complications Plan: Labs ordered (2) Screening PSA (prostate specific antigen): Code(s): Z12.5 - Encounter for screening for malignant neoplasm of prostate Plan: PSA ordered Plan The patient agreed to the use of a medical biller for this encounter. Scribed for STANISLAW Gonzalez-LILLIAM by April Sanchez medical biller, on 08/17/2023 at 10:20 EST. Orders: Orders AMB Hemoglobin A1c Today E11.65 - Type 2 diabetes mellitus with hyperglycemia TSH reflex Free T4 Today E11.9 - Type 2 diabetes mellitus without complications UA CC w/rflx Micro + Cult Today E11.9 - Type 2 diabetes mellitus without complications Prostate Specific Antigen Scr Today Z12.5 - Encounter for screening for malignant neoplasm of prostate Pneumococcal 20 Immunization Today Z23 - Encounter for immunization Complete Blood Count Auto Diff Today E11.9 - Type 2 diabetes mellitus without complications Comprehensive [place]. Panel Fast Today E11.9 - Type 2 diabetes mellitus without complications Lipid Panel Today E11.9 - Type 2 diabetes mellitus without complications Coding Level of Care Code Est Pt Level 3 (70646) Diagnoses Type 2 diabetes mellitus E11.9 Screening PSA (prostate specific antigen) Z12.5 Additional Codes CORINE-7 Assessment Billing - CORINE-7 Assessment Tool: CORINE-7 Assessment 72200 ([id number])
[2023-08-17 10:05] VITALS: BP 136/80; PULSE 83; O2SAT 98
== END 2023-08-17 12:35 | disposition home or self-care (01) ==
PROVIDERS: PCP Nurse Practitioner Family; Visit Provider Nurse Practitioner Family
DX: E11.9 Type 2 diabetes mellitus without complications (principal); Z12.5 Encounter for screening for malignant neoplasm of prostate; E11.65 Type 2 diabetes mellitus with hyperglycemia; Z23 Encounter for immunization
CPT/HCPCS: 83036; 90471; 90677; 99213

== ENCOUNTER 2024-01-30 14:13 | Outpatient (AMB) | payer OTHER, SELFPAY ==
[2024-01-30 14:21] VITALS: BP 120/80; PULSE 88; O2SAT 98; BMI 29.1
--- NOTE | 2024-01-30 14:21 | A.OFFPC_ITS ---
Vital Signs 01/30/24 14:21 Height 5 ft 10 in Weight 203 lb BMI 29.1 BP 120/80 Blood Pressure Location Lt brachial Position Sitting Pulse 88 Pulse Source Pulse Oximeter Pulse Oximetry (%) 98 Oxygen Delivery Method Room Air Intake Visit Reasons: Follow Up Intake Note: Patient here for diabetes f/u. Allergies No Known Allergies [No Known Allergies*] Allergy (Verified 01/30/24 14:29) Tobacco use date assessed: 01/30/24 Dental Screening Dental Screen Date: 01/30/24 Did you have a dental visit in the last 12 months?: Yes Did you have a dental problem in the last 6 months where you did not have access to dental care?: No Was dental information given to patient?: Patient has dentist HPI Follow Up HPI Details Pt is a diabetic, on an CECILY and a statin. A1C in office today is 13.0. Due for microalbumin. Denies polyuria, polydipsia, and neuropathy. Pt denies any signs and symptoms of hypoglycemia and does know how to correct it. Pt reports that he has not been taking his lantus or novolog every day. Will increase lantus to 75 units. Will also start ozempic 0.25mg. Pt educated on importance of tight glucose control [facility] Medical History Dyslipidemia Sciatica, right side Type 2 diabetes mellitus Surgical History History of esophagogastroduodenoscopy (EGD) H/O colonoscopy Family History Father Colon cancer Alzheimer disease Enlarged prostate Mother Diabetes Social History Housing: House Alcohol intake: never Patient Tobacco Use Status: Never used Tobacco e-Cigarette/Vaping Use: Never Used Second Hand Smoke Exposure: Yes service: No Current occupational status: employed Current occupation: [employer] Current occupational exposures/hazards: No Cognitive needs: No Hearing needs: No Vision needs: No Questionnaire Thrive Questionnaire Date Thrive assessed: 08/17/23 CORINE-7 AMB Questionnaire CORINE-7 Date CORINE - 7 assessed: 08/17/23 Source: Developed by Drs. David Farooq, Daniela Buchanan, Johnathan De Souza and colleagues, with an educational sarah from [employer]. Review of Systems Const Reports as per HPI Physical exam (Primary Care) Vital Signs: Last Vital Signs Pulse 88 01/30/24 14:21 BP 120/80 01/30/24 14:21 Pulse Ox 98 01/30/24 14:21 Oxygen Delivery Method Room Air 01/30/24 14:21 BMI result Body Mass Index 29.1 Tobacco/Smoking Status: Tobacco use Status Tobacco use date assessed 01/30/24 01/30/24 14:36 Patient Tobacco Use Status Never used Tobacco 01/30/24 14:21 e-Cigarette/Vaping Use Never Used 01/30/24 14:21 Thrive Assessment: Date of Thrive Assessment Date Thrive assessed 08/17/23 01/30/24 14:21 Const General: cooperative Orientation/consciousness: patient oriented x3 Resp Effort & Inspection: normal respiratory effort Auscultation: clear to auscultation bilaterally Cardio Rate: regular rate Rhythm: regular rhythm Heart sounds: S1 normal heart sound present and S2 normal heart sound present Neuro General: patient oriented x3 Extrem Other: bilat feet: + sensation with use of monofilament, feet intact Results AMB Hemoglobin A1c AMB Hemoglobin A1c 13.0 % Last Edit by CHRIS Reynoso on 01/30/24 14:54 Results Reviewed Results Reviewed: Laboratory Last Values Hgb A1c (Clinic) 13.0 % (4.0-6.0) H 01/30/24 14:53 Assessment and Plan Assessment & Plan (1) Uncontrolled diabetes mellitus: Code(s): E11.65 - Type 2 diabetes mellitus with hyperglycemia Plan: increased insulin, pt is not taking mealtime insulins often. pt knows the dangers of uncontrolled diabetes (2) Screening PSA (prostate specific antigen): Code(s): Z12.5 - Encounter for screening for malignant neoplasm of prostate Plan The patient agreed to the use of a medical staff services coordinator for this encounter. Scribed for MEDINA Gonzalez by gualberto Downing scribe, on 01/30/2024 at 15:25 EST. Orders: Orders Comprehensive [place]. Panel Fast Today E11.65 - Type 2 diabetes mellitus with hyperglycemia TSH reflex Free T4 Today E11.65 - Type 2 diabetes mellitus with hyperglycemia UA CC w/rflx Micro + Cult Today E11.65 - Type 2 diabetes mellitus with hyperglycemia Lipid Panel Today E11.65 - Type 2 diabetes mellitus with hyperglycemia Prostate Specific Antigen Scr Today Z12.5 - Encounter for screening for malignant neoplasm of prostate AMB Hemoglobin A1c Today E11.9 - Type 2 diabetes mellitus without complications Complete Blood Count Auto Diff Today E11.65 - Type 2 diabetes mellitus with hyperglycemia Microalbumin, Random (w Creat) Today E11.65 - Type 2 diabetes mellitus with hyperglycemia Medications: New semaglutide (Ozempic) for 4 weeks 0.25 mg (0.368 mL) subcut QWEEK 3 mL 1RF Changed From Lantus Solostar U-100 Insulin (insulin glargine) 66 units (0.66 mL) subcut QPM 45 mL 1RF NS E11.9 - Type 2 diabetes mellitus without complications To Lantus Solostar U-100 Insulin (insulin glargine) 75 units (0.75 mL) subcut QPM 45 mL 1RF NS E11.9 - Type 2 diabetes mellitus without complications Refilled metformin 1,000 mg PO BID 180 tabs 3RF lisinopril 5 mg PO DAILY 90 tabs 1RF 90 days pen needle, diabetic (Pen Needle) inject once a day 100 ea 4RF E11.65 - Type 2 diabetes mellitus with hyperglycemia Discontinued semaglutide for 4 doses Discontinued Reason: Patient no longer taking 2 mg (0.75 mL) subcut QWEEK 30 days 3.75 mL 0RF Coding Level of Care Code Est Pt Level 3 (62288) Diagnoses Uncontrolled diabetes mellitus E11.65 Screening PSA (prostate specific antigen) Z12.5
== END 2024-01-30 15:42 | disposition home or self-care (01) ==
PROVIDERS: PCP Nurse Practitioner Family; Visit Provider Nurse Practitioner Family
DX: E11.65 Type 2 diabetes mellitus with hyperglycemia (principal); Z12.5 Encounter for screening for malignant neoplasm of prostate
CPT/HCPCS: 83036; 99214

== ENCOUNTER 2024-04-19 08:59 | Outpatient (AMB) | payer OTHER, SELFPAY ==
[2024-04-19 09:15] VITALS: BP 128/72; PULSE 88; BMI 30.4
--- NOTE | 2024-04-19 09:15 | MHC.OFFVIS ---
Vital Signs 04/19/24 09:15 Height 5 ft 10 in Weight 212 lb 1.355 oz BMI 30.4 BP 128/72 Blood Pressure Location Rt brachial Position Sitting Pulse 88 Pulse Source Pulse Oximeter Intake Visit Reasons: DM Intake Note: New patient present today for Diabetes Mellitus. Last Diabetic Eye exam: approx 2 years, Due for exam Last Podiatry Visit: Does not see a Wire Stripping Machine Operator Random Glucose: 155 mg/dl HgA1C: 13.0% 01/30/2024 Geospatial Intelligence Analyst Required: No Accompanied by: Self / Same As Patient Allergies No Known Allergies [No Known Allergies*] Allergy (Verified 04/19/24 09:16) HPI Comments Details: This is a 53 year old male with a past medical history of Type II DM, elevated liver enzymes and obesity presenting for initial endocrinology consult for diabetic management. He was diagnosed 25 years ago. Hemoglobin a1c 13% 01/30/24. POC 155. Current medication regimen: Lantus 76 units in the morning, Novolog, Metformin 1000 mg twice daily, Ozempic 0.25 mg once weekly. Compliance issues: Patient only getting Novolog doses occasionally. 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 Fasting glucose: under 200 recently. No device today. Diet: diabetic diet, does very well with this Nonsmoker, no alcohol Hypoglycemia: last week he had a low reading when he accidentally double dosed Ozempic. Treated with food. Hyperglycemia symptoms: itching Eye exam: Overdue, referred to [facility] Microvascular complications: neuropathy Macrovascular complications: none He takes Lisinopril 5 mg daily for renal protection. He takes Atorvastatin 10 mg at bedtime. Last LDL at goal <100, and he is due for labs. He does not see podiatry. Left fifth toe presses against the 4th toe. Referred. ROS: Eyes: No vision changes, blurry vision, double vision Respiratory: No shortness of breath Cardiovascular: No chest pain Gastrointestinal: No anorexia, nausea, vomiting or diarrhea. No abdominal pain Neurologic: No headache, dizziness, syncope Endocrine: No cold or heat intolerance. No polyuria or polydipsia. Physical exam: Constitutional: Alert, in no distress. Neck: Supple, Full range of motion. No lymphadenopathy. No palpable thyroid masses. Respiratory: Clear to auscultation. Cardiovascular: S1 S2 regular. No murmurs. Right foot: Warm and well perfused. No clubbing, cyanosis or edema. DP pulse 3+. Decreased vibratory sensation. Intact sensation to monofilament. Left foot: Warm and well perfused. No clubbing, cyanosis or edema. DP pulse 3+. Decreased vibratory sensation. Intact sensation to monofilament. left fifth toe presses against the 4th toe. no ulcer. [facility] Medical History (Updated 04/19/24 @ 10:11 by BRITANY Ocampo) Diabetes, polyneuropathy Uncontrolled type 2 diabetes mellitus with hyperglycemia Dyslipidemia Sciatica, right side Type 2 diabetes mellitus Surgical History History of esophagogastroduodenoscopy (EGD) H/O colonoscopy Family History Father Colon cancer Alzheimer disease Enlarged prostate Mother Diabetes Social History Housing: House Alcohol intake: never Patient Tobacco Use Status: Never used Tobacco e-Cigarette/Vaping Use: Never Used Second Hand Smoke Exposure: Yes service: No Current occupational status: employed Current occupation: [employer] Current occupational exposures/hazards: No Cognitive needs: No Hearing needs: No Vision needs: No Physical Exam Vital Signs: BMI result Body Mass Index 30.4 Results Reviewed Results Reviewed: Laboratory Tests 11/02/22 03/03/23 08/17/23 13:11 13:50 10:19 Creatinine 1.04 Estimated GFR > 60 Hgb A1c (Clinic) 10.6 H Triglycerides 119 Cholesterol 127 LDL Cholesterol, Calc 67 HDL Cholesterol 37 Urine Creatinine 252.07 Urine Microalbumin 17.0 Microalb/Creat Ratio 6.7 01/30/24 14:53 Creatinine Estimated GFR Hgb A1c (Clinic) 13.0 H Triglycerides Cholesterol LDL Cholesterol, Calc HDL Cholesterol Urine Creatinine Urine Microalbumin Microalb/Creat Ratio Assessment & Plan Assessment & Plan (1) Uncontrolled type 2 diabetes mellitus with hyperglycemia: Code(s): E11.65 - Type 2 diabetes mellitus with hyperglycemia Category: Medical (2) Diabetes, polyneuropathy: Code(s): E11.42 - Type 2 diabetes mellitus with diabetic polyneuropathy Category: Medical Qualifiers: Diabetes mellitus type: type 2 Qualified Code(s): E11.42 - Type 2 diabetes mellitus with diabetic polyneuropathy Plan In summary this is a 53 year old male with uncontrolled Type II DM with improving glycemic control recently. Prescribed freestyle ramonita 3. Ordered F2r-yad first week of April. We discussed referral to social security assessor and Cequr given difficulty administering Novolog due to schedule. Patient deferred until after CGM data reviewed. Continue diabetic diet. Declines corrugator operator. Referred for eye exam. Referred to podiatry. Follow up in 4-6 weeks to review CGM and make changes to medication regimen then as indicated. Treatment of hypoglycemia reviewed. Orders: Orders Hemoglobin A1c Today E11.65 - Type 2 diabetes mellitus with hyperglycemia Referrals Ophthalmology Referral E11.65 - Type 2 diabetes mellitus with hyperglycemia Podiatry Referral E11.65 - Type 2 diabetes mellitus with hyperglycemia, G62.9 - Polyneuropathy, unspecified, L60.8 - Other nail disorders Medications: New blood-glucose sensor (FreeStyle Ramonita 3 Sensor device) apply new sensor every 14 days as directed 2 ea 11RF blood-glucose meter,continuous (FreeStyle Ramonita 3 [place]) as directed 1 ea 0RF Refilled pen needle, diabetic (Pen Needle) inject once a day 200 ea 5RF E11.65 - Type 2 diabetes mellitus with hyperglycemia Coding Level of Care Code New Pt Level 5 (01626) Complex EM visit Add On G2211 Diagnoses Uncontrolled type 2 diabetes mellitus with hyperglycemia E11.65 Diabetic polyneuropathy associated with type 2 diabetes mellitus E11.42 Diabetes mellitus type: type 2 Time Spent (min) 62 Comment reviewing labs and notes, direct patient care, completing documentation
[2024-04-19 09:28] LABS: Glucose, Whole Blood 155 mg/dL (60-115)
== END 2024-04-19 10:04 | disposition home or self-care (01) ==
PROVIDERS: PCP Nurse Practitioner Family; Visit Provider Physician Assistant Medical
DX: E11.65 Type 2 diabetes mellitus with hyperglycemia (principal); E11.42 Type 2 diabetes mellitus with diabetic polyneuropathy
CPT/HCPCS: 99205; G2211

== ENCOUNTER → 2024-04-19 08:59 | Outpatient (BNVA) | payer OTHER, SELFPAY | PROVIDERS: PCP Nurse Practitioner Family; Visit Provider Physician Assistant Medical | DX: E11.65 Type 2 diabetes mellitus with hyperglycemia (principal); E11.42 Type 2 diabetes mellitus with diabetic polyneuropathy; E66.9 Obesity, unspecified; R79.89 Other specified abnormal findings of blood chemistry | CPT/HCPCS: 82947; 99202 ==

== ENCOUNTER 2024-05-01 12:05 | Outpatient (REF) | payer OTHER, SELFPAY ==
[2024-05-01 13:02] LABS: MANUAL DIFF FLAG NO
[2024-05-01 13:03] LABS: Basophils Absolute Auto 0.1 X10*3/uL (0.0-0.2); Basophils Percent Auto 1.3 % (0-2); Eosinophils Absolute Auto 0.1 X10*3/uL (0.0-0.4); Eosinophils Percent Auto 1.7 % (0-4); Hematocrit 46.1 % (42.0-52.0); Hemoglobin 16.1 g/dl (14.0-18.0); Imm Gran Abs Auto 0.02 X10*3/uL (0.00-0.03); Imm Gran Pct Auto 0.3 % (0.0-0.4); Lymphocytes Absolute Auto 2.5 X10*3/uL (1.2-4.9); Lymphocytes Percent Auto 34.8 % (20-40); Mean Corpuscular HGB Conc 34.9 g/dl (31.0-36.0); Mean Corpuscular Hemoglobin 31.8 pg (27.0-33.0); Mean Corpuscular Volume 91.1 fL (80.0-98.0); Mean Platelet Volume 10.4 fL (9.4-12.4); Monocytes Absolute Auto 0.5 X10*3/uL (0.1-1.2); Monocytes Percent Auto 7.2 % (2-11); Neutrophils Absolute Auto 3.9 x10*3/uL (2.0-8.3); Neutrophils Percent Auto 54.7 % (45-73); Platelet Count 307 X10*3/uL (160-400); Red Blood Count 5.06 X10*6/uL (4.60-5.80); Red Cell Distribution Width 12.4 % (11.0-16.0); White Blood Count 7.1 X10*3/uL (4.8-10.8)
[2024-05-01 13:04] LABS: Appearance Urine Clear; Color Urine Yellow; Glucose Urine UA 500 mg/dL (Negative); Leukocyte Esterase Urine Negative (Negative); Nitrite Urine Negative (Negative); Urine Blood Negative (Negative); Urine Ketones Negative (Negative); Urine Protein Negative (Neg-Trace)
[2024-05-01 13:12] LABS: Estimated Average Glucose 217 mg/dL; Hemoglobin A1c % 9.2 % (<6.0)
[2024-05-01 13:22] LABS: Alanine Aminotransferase 27 U/L (0-40); Albumin Level 4.5 g/dL (3.5-5.0); Alkaline Phosphatase 51 U/L (39-117); Anion Gap 11 (12-20); Aspartate Amino Transferase 24 U/L (5-37); Bilirubin Total 0.6 mg/dL (0.0-1.0); Blood Urea Nitrogen 11 mg/dL (9-16); Calcium 10.3 mg/dL (8.4-10.2); Carbon Dioxide 30 mmol/L (22-29); Chloride 105 mmol/L (96-108); Cholesterol 110 mg/dL (<200); Estimated Glomerular Filt Rate > 60; Glucose Fasting 115 mg/dL (60-99); HDL Cholesterol 36 mg/dL (>40); LDL Cholesterol Calculated 56 mg/dL (<100); Potassium 4.2 mmol/L (3.3-5.1); Sodium 142 mmol/L (135-145); Total Protein 7.5 g/dL (6.5-8.0); Triglycerides 90 mg/dL (<150)
[2024-05-01 13:33] LABS: Prostate Specific Antigen Scr 0.39 ng/mL (<0.05-4.0)
[2024-05-01 13:37] LABS: TSH reflex Free T4 2.13 uIU/mL (0.32-4.0)
[2024-05-01 13:56] LABS: Creatinine Urine 103.52 mg/dL; Microalbum/Creatinine Ratio Ur 4.8 ug/mg cr (<30)
== END 2024-05-01 12:06 | disposition home or self-care (01) ==
LOC: HO.10HDL 12:05
PROVIDERS: Physician Assistant Medical; Visit Provider Nurse Practitioner Family
DX: Z12.5 Encounter for screening for malignant neoplasm of prostate (principal); E11.65 Type 2 diabetes mellitus with hyperglycemia
CPT/HCPCS: 36415; 80053; 80061; 81003; 82043; 82570; 83036; 84153; 84443; 85025

== ENCOUNTER 2024-05-07 13:54 | Outpatient (AMB) | payer OTHER, SELFPAY ==
[2024-05-07 14:00] VITALS: BP 130/76; PULSE 100; O2SAT 96; BMI 30.3
--- NOTE | 2024-05-07 14:00 | A.OFFPC_ITS ---
Vital Signs 05/07/24 14:00 Height 5 ft 10 in Weight 211 lb 8 oz BMI 30.3 BP 130/76 Blood Pressure Location Lt brachial Position Sitting Pulse 100 Pulse Source Pulse Oximeter Pulse Oximetry (%) 96 Oxygen Delivery Method Room Air Intake Visit Reasons: 3 month follow up Allergies No Known Allergies [No Known Allergies*] Allergy (Verified 05/07/24 14:00) Tobacco use date assessed: 05/07/24 Dental Screening Dental Screen Date: 01/30/24 Did you have a dental visit in the last 12 months?: Yes Did you have a dental problem in the last 6 months where you did not have access to dental care?: No Was dental information given to patient?: Patient has dentist HPI 3 month follow up HPI Details Pt is here for a PE. Colon screen is up to date. PSA is up to date, Pt is a diabetic, sees endo. Pt was seeing urology for BPH but would like a different provider, will refer. Pt has a hx of sleep apnea. Will refer for sleep study. [facility] Medical History Diabetes, polyneuropathy Uncontrolled type 2 diabetes mellitus with hyperglycemia Dyslipidemia Sciatica, right side Type 2 diabetes mellitus Surgical History History of esophagogastroduodenoscopy (EGD) H/O colonoscopy Family History Father Colon cancer Alzheimer disease Enlarged prostate Mother Diabetes Social History Housing: House Alcohol intake: never Patient Tobacco Use Status: Never used Tobacco e-Cigarette/Vaping Use: Never Used Second Hand Smoke Exposure: Yes service: No Current occupational status: employed Current occupation: [employer] Current occupational exposures/hazards: No Cognitive needs: No Hearing needs: No Vision needs: No Questionnaire PHQ-9 Over the last 2 weeks, how often have you been bothered by any of the following problems? 1. Little interest or pleasure in doing things: not at all 2. Feeling down, depressed, or hopeless: not at all 3. Trouble falling or staying asleep, or sleeping too much: not at all 4. Feeling tired or having little energy: not at all 5. Poor appetite or overeating: not at all 6. Feeling bad about yourself - or that you are a failure or have let yourself or your family down: not at all 7. Trouble concentrating on things, such as reading the newspaper or watching television: not at all 8. Moving or speaking so slowly that other people could have noticed. Or the opposite - being so fidgety or restless that you have been moving around a lot more than usual: not at all 9. Thoughts that you would be better off or of hurting yourself in some way: not at all Total score: 0 Depression Screening Interpretation: Negative Depression Screening Done: Yes 80934 - PHQ-9 Billing: Yes Source: Developed by Drs. David Farooq, Daniela Buchanan, Johnathan De Souza and colleagues, with an educational sarah from [employer]. Thrive Questionnaire Date Thrive assessed: 05/07/24 I am a: Patient What is your living situation today?: I choose not to answer this question Within the past 12 months, did the food you bought not last and you didn't have the money to get more?: I choose not to answer this question Within the past 12 months, did you worry whether your food would run out before you got money to buy more?: I choose not to answer this question Do you have trouble paying for medicines?: I choose not to answer this question Do you have trouble getting transportation to medical appointments?: I choose not to answer this question Do you have trouble paying your heating and electricity bill?: I choose not to answer this question Do you have trouble taking care of your child, family member or friend?: I choose not to answer this question Do you have trouble with day-to-day activities such as bathing, preparing meals, shopping, managing finances, etc.?: I choose not to answer this question Are you currently unemployed and looking for a job?: I choose not to answer this question Are you interested in more education?: I choose not to answer this question Please select the resources that you would like help with: None Currently or been in a relationship where the following occur: I choose not to answer THRIVE Score: 0 AUDIT C Alcohol Use Questionnaire (AUDIT-C) 1. How often do you have a drink containing alcohol?: Never 3. How often do you have six or more drinks on one occasion?: Never Total Score: 0 Score Reviewed/Action Taken: Yes CORINE-7 AMB Questionnaire CORINE-7 Date CORINE - 7 assessed: 05/07/24 Feeling nervous, anxious, or on edge: 0 = Not at all Not being able to stop or control worryin = Not at all Worrying too much about different things: 0 = Not at all Trouble relaxin = Not at all Being so restless that it is hard to sit still: 0 = Not at all Becoming easily annoyed or irritable: 0 = Not at all Feeling afraid as if something awful might happen: 0 = Not at all Total CORINE-7 score (0-4 normal; 5-9 mild; 10-14 moderate; 15-21 severe): 0 Source: Developed by Drs. David Farooq, Daniela Buchanan, Johnathan De Souza and colleagues, with an educational sarah from [employer]. CORINE-7 Assessment Billing CORINE-7 Assessment Tool: CORINE-7 Assessment 81085 Review of Systems Const Denies chills and Denies fever(s) Eyes Denies blurry vision ENT Denies vertigo, Denies dizziness and Denies sore throat Card Denies chest pain at rest, Denies chest pain with activity, Denies diaphoresis, Denies dyspnea and Denies dyspnea on exertion Resp Denies cough, Denies dyspnea, Denies dyspnea on exertion and Denies wheezing GI Denies abdominal pain, Denies melena, Denies hematochezia, Denies constipation, Denies diarrhea and Denies loose stools Denies hematuria Musc Denies numbness and Denies tingling Skin/Breast Denies lesions Neuro Denies vertigo, Denies dizziness, Denies numbness and Denies tingling Psych Denies anxiety, Denies depression, Denies homicidal ideation, Denies suicidal ideation and Denies other (substance abuse) Aller/Immun Denies wheezing Physical exam (Primary Care) Vital Signs: Last Vital Signs Pulse 100 05/07/24 14:00 BP 130/76 05/07/24 14:00 Pulse Ox 96 05/07/24 14:00 Oxygen Delivery Method Room Air 05/07/24 14:00 BMI result Body Mass Index 30.3 Tobacco/Smoking Status: Tobacco use Status Tobacco use date assessed 05/07/24 05/07/24 14:01 Patient Tobacco Use Status Never used Tobacco 05/07/24 14:01 e-Cigarette/Vaping Use Never Used 05/07/24 14:01 PHQ-9: PHQ-9 Score PHQ-9: Total score 0 05/07/24 14:22 Depression Screening Interpretation: Negative Thrive Assessment: Date of Thrive Assessment Date Thrive assessed 05/07/24 05/07/24 14:01 Currently or been in a relationship where the following occur: I choose not to answer Const General: cooperative Nutritional Appearance: well nourished Orientation/consciousness: patient oriented x3 HENMT Head: Yes normal to inspection, Yes normocephalic and Yes atraumatic Ears: TM's normal bilaterally Eyes General: appearance normal, both eyes and all related structures Alignment and Position: alignment normal and position normal Neck Neck: Yes normal visual inspection, Yes no lymphadenopathy and Yes supple Resp Effort & Inspection: normal respiratory effort Auscultation: clear to auscultation bilaterally Cardio Rate: regular rate Rhythm: regular rhythm Heart sounds: S1 normal heart sound present, S2 normal heart sound present and no murmurs GI Palpation (GI): Soft to palpation and nontender Auscultation: normal bowel sounds Other: refused ARLENE Male General Exam: Yes normal external exam Penis: normal penis Scrotum: scrotum normal, testes descended bilaterally and no inguinal hernias Testes: no testicular mass Skin Rashes: no rashes Neuro General: patient oriented x3, moves all extremities, no focal motor deficits and deep tendon reflexes 2+ bilaterally Romberg Test: Negative Extrem Other: bilat feet: + sensation with use of monofilament, feet intact Psych Appearance: grossly normal Mental Status: mental status grossly normal Speech and movement: Normal speech and movement present Affect: normal affect Attitude: cooperative Thought process: Normal thought process present Thought content: Normal thought content present Insight: Good insight present (Psych) Judgement: Good judgement present (Psych) Assessment and Plan Assessment & Plan (1) Sleep apnea: Code(s): G47.30 - Sleep apnea, unspecified Plan: referring for sleep apnea (2) Weak urinary stream: Code(s): R39.12 - Poor urinary stream Plan: Referred to urology (3) Encounter for routine adult physical exam with abnormal findings: Code(s): Z00.01 - Encounter for general adult medical examination with abnormal findings Plan: Labs already performed Plan The patient agreed to the use of a medical staff services manager for this encounter. Scribed for MEDINA Gonzalez by gualberto Downing scribe, on 05/07/2024 at 14:20 EST. Orders: Referrals Sleep Medicine Referral G47.30 - Sleep apnea, unspecified Urology Referral R39.12 - Poor urinary stream Coding Level of Care Code Est Pt Prev Care 40-64y(00302) Diagnoses Sleep apnea G47.30 Weak urinary stream R39.12 Encounter for routine adult physical exam with abnormal findings Z00.01 Additional Codes CORINE-7 Assessment Billing - CORINE-7 Assessment Tool: CORINE-7 Assessment 74287 ([id number])
== END 2024-05-07 14:52 | disposition home or self-care (01) ==
PROVIDERS: PCP Nurse Practitioner Family; Visit Provider Nurse Practitioner Family
DX: Z00.00 Encounter for general adult medical examination without abnormal findings (principal); G47.30 Sleep apnea, unspecified; R39.12 Poor urinary stream
CPT/HCPCS: 99396

== ENCOUNTER 2024-05-24 12:52 | Outpatient (AMB) | payer OTHER, SELFPAY ==
--- NOTE | 2024-05-24 12:58 | A.OFFVIS_ITS ---
Vital Signs 05/24/24 13:04 Height 5 ft 10 in Weight 212 lb 15.465 oz BMI 30.6 BP 96/56 L Blood Pressure Location Rt brachial Position Sitting Pulse 74 Pulse Source Pulse Oximeter Intake Visit Reasons: diabetes follow up review CGM/CONFIRMED Intake Note: Patient present today for Diabetes Mellitus. 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 He was last seen by me 04/19/24. He was diagnosed 25 years ago. Hemoglobin a1c 13% 01/30/24 and decreased to A1c 9.2% on 05/01/24. POC 193. Current medication regimen: Lantus 76 units in the morning, Metformin 1000 mg twice daily, Ozempic 0.25 mg once weekly. Was not taking Ozempic correctly, but he has been the last couple weeks. Does not have meter with him today. Libre3 ready at pharmacy, but he did not pick it up. He will get it today. BG this morning per patient was 126. Denies BG over 200 in the last few weeks. Compliance issues: Patient is not taking Novolog. Diet: diabetic diet, does very well with this Nonsmoker, no alcohol Hypoglycemia: none Hyperglycemia symptoms: none Eye exam: last week - not retinopathy per patient Microvascular complications: neuropathy Macrovascular complications: none He takes Lisinopril 5 mg daily for renal protection. He takes Atorvastatin 10 mg at bedtime. LDL goal <100. ROS: Eyes: No vision changes, blurry vision, double vision Respiratory: No shortness of breath Cardiovascular: No chest pain Gastrointestinal: No anorexia, nausea, vomiting or diarrhea. No abdominal pain Neurologic: No headache, dizziness, syncope Endocrine: No cold or heat intolerance. No polyuria or polydipsia. Physical exam: Constitutional: Alert, in no distress. Neck: Supple, Full range of motion. No lymphadenopathy. No palpable thyroid masses. Respiratory: Clear to auscultation. Cardiovascular: S1 S2 regular. No murmurs. [facility] Medical History (Updated 05/09/24 @ 09:11 by Kota Mccluer, [facility]) Hypertensive retinopathy Diabetes, polyneuropathy Uncontrolled type 2 diabetes mellitus with hyperglycemia Dyslipidemia Sciatica, right side Type 2 diabetes mellitus Surgical History History of esophagogastroduodenoscopy (EGD) H/O colonoscopy Family History Father Colon cancer Alzheimer disease Enlarged prostate Mother Diabetes Social History Housing: House Alcohol intake: never Patient Tobacco Use Status: Never used Tobacco e-Cigarette/Vaping Use: Never Used Second Hand Smoke Exposure: Yes service: No Current occupational status: employed Current occupation: [employer] Current occupational exposures/hazards: No Cognitive needs: No Hearing needs: No Vision needs: No Physical Exam Vital Signs: Last Vital Signs Pulse 74 05/24/24 13:04 BP 96/56 L 05/24/24 13:04 BMI result Body Mass Index 30.6 Results Reviewed Results Reviewed: Laboratory Last Values Glucose (Clinic) 193 mg/dL (60-115) H 05/24/24 13:09 Assessment & Plan Assessment & Plan (1) Uncontrolled type 2 diabetes mellitus with hyperglycemia: Code(s): E11.65 - Type 2 diabetes mellitus with hyperglycemia Category: Medical (2) Diabetes, polyneuropathy: Code(s): E11.42 - Type 2 diabetes mellitus with diabetic polyneuropathy Category: Medical Qualifiers: Diabetes mellitus type: type 2 Qualified Code(s): E11.42 - Type 2 diabetes mellitus with diabetic polyneuropathy Plan In summary this is a 53 year old male with uncontrolled Type II DM with improving glycemic control recently. He will last picker his prescription for the Ramonita 3 at the pharmacy and follow up with me to review the readings. He is eager to decrease his insulin requirement so we will increase Ozempic to 0.5 mg once weekly and continue to titrate it based on tolerability and efficacy. If his fasting glucose readings are less than 100 he can decrease Lantus from 76 units to 72 units daily. Refer to clinical informatics educator. Podiatry exam is scheduled in July. Eye exam is up-to-date. Follow up in 4 weeks to review CGM. Treatment of hypoglycemia reviewed. Orders: Referrals Diabetes Education Referral E11.65 - Type 2 diabetes mellitus with hyperglycemia Medications: New semaglutide (Ozempic) for 4 weeks 0.5 mg (0.736 mL) subcut QWEEK 3 mL 0RF Refilled atorvastatin 10 mg PO BEDTIME 90 tabs 3RF 90 days Discontinued semaglutide (Ozempic) for 4 weeks Discontinued Reason: Doctor's Order 0.25 mg (0.368 mL) subcut QWEEK 3 mL 1RF Coding Level of Care Code Est Pt Level 4 (78343) Complex EM visit Add On G2211 Diagnoses Uncontrolled type 2 diabetes mellitus with hyperglycemia E11.65 Diabetic polyneuropathy associated with type 2 diabetes mellitus E11.42 Diabetes mellitus type: type 2
[2024-05-24 13:04] VITALS: BP 96/56; PULSE 74; BMI 30.6
[2024-05-24 13:30] LABS: Glucose, Whole Blood 193 mg/dL (60-115)
== END 2024-05-24 13:34 | disposition home or self-care (01) ==
PROVIDERS: PCP Nurse Practitioner Family; Visit Provider Physician Assistant Medical
DX: E11.65 Type 2 diabetes mellitus with hyperglycemia (principal); E11.42 Type 2 diabetes mellitus with diabetic polyneuropathy

== ENCOUNTER → 2024-05-24 12:52 | Outpatient (BNVA) | payer OTHER, SELFPAY | PROVIDERS: PCP Nurse Practitioner Family; Visit Provider Physician Assistant Medical | DX: E11.65 Type 2 diabetes mellitus with hyperglycemia (principal); E11.42 Type 2 diabetes mellitus with diabetic polyneuropathy; E78.5 Hyperlipidemia, unspecified; E66.9 Obesity, unspecified; Z68.30 Body mass index [BMI] 30.0-30.9, adult; Z79.899 Other long term (current) drug therapy | CPT/HCPCS: 82947; 99212 ==

== ENCOUNTER 2024-06-25 10:55 | Outpatient (AMB) | payer OTHER, SELFPAY ==
--- NOTE | 2024-06-25 10:56 | MHC.OFFVIS ---
Vital Signs 06/25/24 10:59 Height 5 ft 10 in Weight 212 lb 4.882 oz BMI 30.5 BP 114/78 Blood Pressure Location Rt brachial Position Sitting Pulse 91 Pulse Source Pulse Oximeter Intake Visit Reasons: type II DM/LVM Intake Note: Patient present today to follow up on Type 2 Diabetes Mellitus. Last Diabetic Eye exam: 05/08/2024 Last Podiatry Visit: Does not see a Back Hoe Operator Random Glucose: 116 mg/dl HgA1C: 9.2% 05/01/2024 Access Representative Required: No Accompanied by: Self / Same As Patient Allergies No Known Allergies [No Known Allergies*] Allergy (Verified 06/25/24 10:59) HPI Comments Details: This is a 54 year old male with a past medical history of Type II DM, HLD and obesity presenting for diabetic management. He was last seen by me 05/24/24. He is doing okay. No ER visits or hospitalizations. He is under a bit of stress between his job cancelling some of his shifts and inexpensive car repair that is looming in the next several months. He was diagnosed 25 years ago. Hemoglobin a1c 13% 01/30/24 and decreased to A1c 9.2% on 05/01/24. POC 116. Current medication regimen: Lantus 76 units in the morning, Metformin 1000 mg twice daily, Ozempic 0.5 mg once weekly. Denies side effects. Misplaced libre3 sensors and reader so he never started using it. Does not have glucometer with him today, but AM readings are at goal per patient. No BG over 200. No hypoglycemia reported. Compliance issues: Patient is not taking Novolog. Diet: diabetic diet, does very well with this Nonsmoker, no alcohol Hypoglycemia: none Hyperglycemia symptoms: none Eye exam: April 2024 Microvascular complications: neuropathy Macrovascular complications: none He takes Lisinopril 5 mg daily for renal protection. He takes Atorvastatin 10 mg at bedtime. LDL goal <100. ROS: Eyes: No vision changes, blurry vision, double vision Respiratory: No shortness of breath Cardiovascular: No chest pain Gastrointestinal: No anorexia, nausea, vomiting or diarrhea. No abdominal pain Neurologic: No headache, dizziness, syncope Endocrine: No cold or heat intolerance. No polyuria or polydipsia. Physical exam: Constitutional: Alert, in no distress. Neck: Supple, Full range of motion. No lymphadenopathy. No palpable thyroid masses. Respiratory: Clear to auscultation. Cardiovascular: S1 S2 regular. No murmurs. Right foot: Warm and well perfused. No clubbing, cyanosis or edema. DP pulse 3+. Decreased vibratory sensation. Intact sensation to monofilament. Left foot: Warm and well perfused. No clubbing, cyanosis or edema. DP pulse 3+. Decreased vibratory sensation. Intact sensation to monofilament. left fifth toe presses against the 4th toe. no ulcer or skin irritation. [facility] Medical History (Updated 05/09/24 @ 09:11 by Kota Mcclure, [facility]) Hypertensive retinopathy Diabetes, polyneuropathy Uncontrolled type 2 diabetes mellitus with hyperglycemia Dyslipidemia Sciatica, right side Type 2 diabetes mellitus Surgical History History of esophagogastroduodenoscopy (EGD) H/O colonoscopy Family History Father Colon cancer Alzheimer disease Enlarged prostate Mother Diabetes Social History Housing: House Alcohol intake: never Patient Tobacco Use Status: Never used Tobacco e-Cigarette/Vaping Use: Never Used Second Hand Smoke Exposure: Yes service: No Current occupational status: employed 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 Current occupational exposures/hazards: No Cognitive needs: No Hearing needs: No Vision needs: No Physical Exam Vital Signs: BMI result Body Mass Index 30.5 Results Reviewed Results Reviewed: Laboratory Tests 11/02/22 03/03/23 08/17/23 13:11 13:50 10:19 Creatinine 1.04 Estimated GFR > 60 Hgb A1c (Clinic) 10.6 H Triglycerides 119 Cholesterol 127 LDL Cholesterol, Calc 67 HDL Cholesterol 37 Urine Creatinine 252.07 Urine Microalbumin 17.0 Microalb/Creat Ratio 6.7 01/30/24 14:53 Creatinine Estimated GFR Hgb A1c (Clinic) 13.0 H Triglycerides Cholesterol LDL Cholesterol, Calc HDL Cholesterol Urine Creatinine Urine Microalbumin Microalb/Creat Ratio Assessment & Plan Assessment & Plan (1) Uncontrolled type 2 diabetes mellitus with hyperglycemia: Code(s): E11.65 - Type 2 diabetes mellitus with hyperglycemia Category: Medical (2) Diabetes, polyneuropathy: Code(s): E11.42 - Type 2 diabetes mellitus with diabetic polyneuropathy Category: Medical Qualifiers: Diabetes mellitus type: type 2 Qualified Code(s): E11.42 - Type 2 diabetes mellitus with diabetic polyneuropathy Plan In summary this is a 54 year old male with uncontrolled Type II DM with improving glycemic control recently. No glucometer data to review today. The patient was advised to hop picker Ramonita 3 sensors at the pharmacy, and he can download the monica for Ramonita 3. He will contact the office if he has difficulty with this. If his phone is not compatible I will submit prescription for Dexcom G7. He is eager to decrease his insulin requirement so we will increase Ozempic to 1 mg once weekly and decrease Lantus to 72 units. Patient will call if he experiences hypoglycemia. Podiatry exam is scheduled in July. Eye exam is up-to-date. Follow up in 4 weeks to review CGM. Treatment of hypoglycemia reviewed. Ordered fasting labs to be done 07/31/2024. Orders: Orders Hemoglobin A1c 07/31/24 E11.65 - Type 2 diabetes mellitus with hyperglycemia B Type Natriuretic Peptide 07/31/24 E11.65 - Type 2 diabetes mellitus with hyperglycemia, E11.9 - Type 2 diabetes mellitus without complications Microalbumin, Random (w Creat) 07/31/24 E11.65 - Type 2 diabetes mellitus with hyperglycemia Lipid Panel 07/31/24 E11.65 - Type 2 diabetes mellitus with hyperglycemia Medications: New semaglutide (Ozempic) 1 mg (0.75 mL) subcut QWEEK 3 mL 3RF Refilled blood-glucose sensor (FreeStyle Ramonita 3 Sensor device) apply new sensor every 14 days as directed 2 ea 11RF Discontinued semaglutide (Ozempic) for 4 weeks Discontinued Reason: Doctor's Order 0.5 mg (0.736 mL) subcut QWEEK 3 mL 0RF Coding Level of Care Code Est Pt Level 4 (95773) Complex EM visit Add On G2211 Diagnoses Uncontrolled type 2 diabetes mellitus with hyperglycemia E11.65 Diabetic polyneuropathy associated with type 2 diabetes mellitus E11.42 Diabetes mellitus type: type 2
[2024-06-25 10:59] VITALS: BP 114/78; PULSE 91; BMI 30.5
[2024-06-25 11:07] LABS: Glucose, Whole Blood 116 mg/dL (60-115)
== END 2024-06-25 11:29 | disposition home or self-care (01) ==
LOC: HO.ENCR 10:55
PROVIDERS: PCP Nurse Practitioner Family; Visit Provider Physician Assistant Medical
DX: E11.65 Type 2 diabetes mellitus with hyperglycemia (principal); E11.42 Type 2 diabetes mellitus with diabetic polyneuropathy

== ENCOUNTER → 2024-06-25 10:55 | Outpatient (BNVA) | payer OTHER, SELFPAY | PROVIDERS: PCP Nurse Practitioner Family; Visit Provider Physician Assistant Medical | DX: E11.65 Type 2 diabetes mellitus with hyperglycemia (principal); E11.42 Type 2 diabetes mellitus with diabetic polyneuropathy; Z79.84 Long term (current) use of oral hypoglycemic drugs; Z79.4 Long term (current) use of insulin | CPT/HCPCS: 82947; 99212 ==

== ENCOUNTER 2024-07-03 13:08 | Outpatient (AMB) | payer OTHER, SELFPAY ==
--- NOTE | 2024-07-03 13:10 | A.OFFVIS_ITS ---
Intake Visit Reasons: BPH/second opinion Intake Note: New Patient presents for initial visit for BPH, weak stream, and hesitancy Urology Medications: none Blood Thinner: none PVR: 22ml's Adapted Physical Education Teacher Required: No Accompanied by: Self / Same As Patient Allergies No Known Allergies [No Known Allergies*] Allergy (Verified 07/03/24 14:01) Medication List - Last Reconciled 07/03/24 by MEDINA Nowak alcohol swabs (Alcohol Prep Pads) 1 pad topical BID atorvastatin 10 mg PO BEDTIME 90 days blood sugar diagnostic (FreeStyle Lite Strips) Use to check blood sugar twice daily, fasting blood sugar in morning and a random sugar during the day blood-glucose meter (FreeStyle Lite Meter kit) Use to check blood sugar twice daily, fasting blood sugar in morning and a random sugar during the day blood-glucose meter,continuous (FreeStyle Ramonita 3 [place]) as directed blood-glucose sensor (FreeStyle Ramonita 3 Sensor device) apply new sensor every 14 days as directed insulin glargine (Lantus Solostar U-100 Insulin) 72 units subcut QPM lancets (FreeStyle Lancets) Use to check blood sugar twice daily, fasting blood sugar in morning and a random sugar during the day lisinopril 5 mg PO DAILY 90 days metformin 1,000 mg PO BID multivitamin (Daily Multi-Vitamin tablet) 1 tab PO DAILY pen needle, diabetic (BD Sophia 2nd Gen Pen Needle) As directed semaglutide (Ozempic) 1 mg (0.75 mL) subcut QWEEK HPI Comments Details: Jabier is a 55-year-old male patient of . He has a past medical history of hypertensive retinopathy, diabetes with polyneuropathy, dyslipidemia, and right-sided sciatica. He presents to the office today as a new patient for ongoing lower urinary tract symptoms he has been experiencing. In discussion with the patient today he reports a longstanding history of a weak urinary stream and feeling of incomplete bladder emptying. He reports feeling symptoms of incomplete bladder emptying have improved now that his A1c is improving. He reports most recent A1c down to 9 as it was 13.0 02/18. We discussed correlation of diabetes/uncontrolled diabetes on lower urinary tract symptoms/bladder as well as overall health and well-being. In office urinalysis results reviewed with the patient today. PVR 22 mL. We discussed further treatment options to include obtaining retroperitoneal ultrasound and or in office urodynamics for further assessment evaluation. However patient reports feeling lower urinary tract symptoms are manageable independently. In review of patient's chart it appears PSA 05/21 0.4. He otherwise denies urinary urgency, urinary frequency, incontinence, nocturia, hematuria, dysuria, foul smelling urine, flank pain, fever, and or chills. [facility] Medical History Hypertensive retinopathy Diabetes, polyneuropathy Uncontrolled type 2 diabetes mellitus with hyperglycemia Dyslipidemia Sciatica, right side Type 2 diabetes mellitus Surgical History History of esophagogastroduodenoscopy (EGD) H/O colonoscopy Family History Father Colon cancer Alzheimer disease Enlarged prostate Mother Diabetes Social History Housing: House Alcohol intake: never Patient Tobacco Use Status: Never used Tobacco e-Cigarette/Vaping Use: Never Used Second Hand Smoke Exposure: Yes service: No Current occupational status: employed Current occupation: [employer] Current occupational exposures/hazards: No Cognitive needs: No Hearing needs: No Vision needs: No Review of Systems Const All systems reviewed & are unremarkable except as noted in HPI and below Physical Exam Const General: cooperative, healthy appearing, comfortable, no acute distress, well developed, alert and awake Orientation/consciousness: patient oriented x3 Limitations: no limitations HEENT Head: Yes normal to inspection, Yes normocephalic and Yes atraumatic Ears: hearing grossly normal bilaterally Eyes General: appearance normal, both eyes and all related structures Neck Neck: Yes normal visual inspection and Yes trachea midline Chest Chest palpation & inspection: normal inspection of the chest Resp Effort & Inspection: normal respiratory effort and able to speak in complete sentences Cardio Rate: regular rate GI Inspection: Yes normal to inspection General: Yes no CVA tenderness Back/Spine/Pelvis Back: no CVA tenderness Skin General skin exam: no rashes or lesions noted Neuro General: patient oriented x3 Extrem General: Yes normal to inspection Psych Appearance: grossly normal and well kempt Mental Status: mental status grossly normal Speech and movement: Normal speech and movement present and Clear speech present Affect: normal affect Attitude: cooperative Thought process: Normal thought process present Thought content: Normal thought content present Insight: Fair insight present (Psych) Judgement: Fair judgement present (Psych) Office Procedures Post Void Residual Post Residual Void Post Void Residual (PVR): 22 [id number] Void Residual by ultrasound Results AMB Urinalysis, Automated UA Leukoctes 0 Jorge/uL Last Edit by Mapori Sigrid on 07/03/24 13:40 UA Nitrite Last Edit by Incip[employer] on 07/03/24 13:40 UA Urobilinogen 0.2 mg/dL Last Edit by Mapori Sigrid on 07/03/24 13:40 UA Protein 0 mg/dL Last Edit by [employer] on 07/03/24 13:40 UA pH 6.0 Last Edit by [employer] on 07/03/24 13:40 UA Blood 0 Mike/uL Last Edit by [employer] on 07/03/24 13:40 UA Specific Novinger 1.025 Last Edit by [employer] on 07/03/24 13:40 UA Ketone Last Edit by [employer] on 07/03/24 13:40 UA Bilirubin 0 mg/dL Last Edit by [employer] on 07/03/24 13:40 UA Glucose 0 mg/dL Last Edit by [employer] on 07/03/24 13:40 Results Reviewed Results Reviewed: Laboratory Last Values Urine pH (Auto) 6.0 07/03/24 13:21 Specific Novinger (Auto) 1.025 07/03/24 13:21 Urine Protein (Auto) 0 mg/dL 07/03/24 13:21 Glucose (UA)(Auto) 0 mg/dL 07/03/24 13:21 Urine Blood (Auto) 0 Mike/uL 07/03/24 13:21 Urine Bilirubin (Auto) 0 mg/dL 07/03/24 13:21 Urine Urobilinogen (Auto) 0.2 mg/dL 07/03/24 13:21 Leukocyte Esterase (Auto) 0 Jorge/uL 07/03/24 13:21 Assessment & Plan Assessment & Plan (1) Weak urinary stream: Code(s): R39.12 - Poor urinary stream Category: Medical (2) Feeling of incomplete bladder emptying: Code(s): R39.14 - Feeling of incomplete bladder emptying Category: Medical Plan In office urinalysis results reviewed with the patient today; as noted above. PVR 22 mL. We discussed further treatment options of weak urinary stream. He currently does not find urological concerns in issue he would like to continue with surveillance monitoring at this time. Recent PSA results reviewed with the patient today; as noted above. We discussed at length importance of managing diabetes for improvement in lower urinary tract symptoms as well as overall health and well-being. Follow-up in 6 months with PVR; or sooner with any issues, concerns, and or questions. Orders: Orders AMB Urinalysis Automated Today Z13.9 - Encounter for screening, unspecified AMB Post Void Residual by ultrasound Today N39.43 - Post-void dribbling Patient Instructions: The patient had an opportunity to ask questions regarding the treatment plan. All questions were answered. Physical exam, labs, and imaging were discussed and reviewed in detail. As well as risks, benefits, and discussion of treatment choices. No major barriers to understanding were identified. The patient expressed understanding and agreement with the above treatment plan. The patient was made aware they should contact our office by phone for worsening of their current condition, the appearance of new symptoms, or with any questions or concerns. Compliance is encouraged with any medications and follow up testing that is ordered. It is a privilege to be allowed the opportunity to participate in? your urological care.? Again, if you have any questions or concerns If you have any questions or concerns please do not hesitate to contact me. The office is [phone]. This note is constructed using voice recognition software. While every effort h as been made to ensure accuracy nicker and breaker errors may have been included. Yours sincerely, MEDINA Nowak Coding Level of Care Code New Pt Level 3 (74774) Diagnoses Weak urinary stream R39.12 Feeling of incomplete bladder emptying R39.14 CPT Codes Post Residual Void - PVR CPT Code: 11422-Vihr Void Residual by ultrasound ([id number])
== END 2024-07-03 13:45 | disposition home or self-care (01) ==
LOC: HO.HUSH 13:09
PROVIDERS: PCP Nurse Practitioner Family; Visit Provider Nurse Practitioner Family
DX: R39.12 Poor urinary stream (principal); R39.14 Feeling of incomplete bladder emptying; Z13.9 Encounter for screening, unspecified
CPT/HCPCS: 99203

== ENCOUNTER → 2024-07-03 13:08 | Outpatient (BNVA) | payer OTHER, SELFPAY | PROVIDERS: PCP Nurse Practitioner Family; Visit Provider Nurse Practitioner Family | DX: R39.12 Poor urinary stream (principal); R39.14 Feeling of incomplete bladder emptying; N39.43 Post-void dribbling | CPT/HCPCS: 51798; 81003; 99202 ==

== ENCOUNTER 2024-08-16 13:40 | Outpatient (AMB) | payer OTHER, SELFPAY ==
--- NOTE | 2024-08-16 13:42 | MHC.OFFVIS ---
Vital Signs 08/16/24 13:46 Height 5 ft 10 in Weight 215 lb 2.738 oz BMI 30.9 BP 126/68 Blood Pressure Location Rt brachial Position Sitting Pulse 97 Pulse Source Pulse Oximeter Intake Visit Reasons: T2DM/CONF Intake Note: Patient present today to follow up on Type 2 Diabetes Mellitus. 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 He was last seen by me 05/24/24. He was diagnosed 30 years ago. Hemoglobin a1c today 08/16/24 is 7.6%. 13% 01/30/24 and decreased to A1c 9.2% on 05/01/24. Reviewed sensor data 71% of the time sensor use > 250 1% 181-249 22% Target range 77% 0% hypoglycemia Average glucose 150 GMI 6.9% Current medication regimen: Lantus 72 units in the morning, Metformin 1000 mg twice daily, Ozempic 1 mg once weekly. Denies side effects. Compliance issues: Patient reports scar tissue despite rotating Lantus injection site and medication leaks out sometimes. Diet: diabetic diet, does very well with this Nonsmoker, no alcohol Hypoglycemia: none. He had one low overnight within the past month and treated with a granola bar. Hyperglycemia symptoms: none Eye exam: April 2024 @ [facility] Microvascular complications: neuropathy Macrovascular complications: none He takes Lisinopril 5 mg daily for renal protection. He takes Atorvastatin 10 mg at bedtime. ROS: Eyes: No vision changes, blurry vision, double vision Respiratory: No shortness of breath Cardiovascular: No chest pain Gastrointestinal: No anorexia, nausea, vomiting or diarrhea. No abdominal pain Neurologic: No headache, dizziness, syncope Endocrine: No cold or heat intolerance. No polyuria or polydipsia. Physical exam: Constitutional: Alert, in no distress. Neck: Supple, Full range of motion. No lymphadenopathy. No palpable thyroid masses. Respiratory: Clear to auscultation. Cardiovascular: S1 S2 regular. No murmurs. 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 Current occupational exposures/hazards: No Cognitive needs: No Hearing needs: No Vision needs: No Physical Exam Vital Signs: Last Vital Signs Pulse 97 08/16/24 13:46 BP 126/68 08/16/24 13:46 BMI result Body Mass Index 30.9 Results AMB Hemoglobin A1c AMB Hemoglobin A1c 7.6 % Last Edit by IVY Urena on 08/16/24 14:01 Assessment & Plan Assessment & Plan (1) Uncontrolled type 2 diabetes mellitus with hyperglycemia: Code(s): E11.65 - Type 2 diabetes mellitus with hyperglycemia Category: Medical (2) Diabetes, polyneuropathy: Code(s): E11.42 - Type 2 diabetes mellitus with diabetic polyneuropathy Category: Medical Qualifiers: Diabetes mellitus type: type 2 Qualified Code(s): E11.42 - Type 2 diabetes mellitus with diabetic polyneuropathy Plan In summary this is a 54 year old male with controlled Type II DM per CGM data. He is eager to decrease his insulin requirement so we will increase Ozempic to 2 mg once weekly and change Lantus to Tresiba and lower dose 68 units daily. Continue Metformin 1000 mg BID. Patient will call if he experiences hypoglycemia and reduce Tresiba to 64 units. Podiatry exam is scheduled. Eye exam is up-to-date. Follow up in 6 weeks to review CGM. Treatment of hypoglycemia reviewed. Ordered fasting labs and reminded patient to have them done. Orders: Orders AMB Hemoglobin A1c Today E11.42 - Type 2 diabetes mellitus with diabetic polyneuropathy Medications: New semaglutide (Ozempic) 2 mg (0.75 mL) subcut QWEEK 3 mL 5RF insulin degludec (Tresiba FlexTouch U-200 insulin) 68 units (0.34 mL) subcut DAILY 30 days 10.2 mL 5RF Discontinued semaglutide (Ozempic) Discontinued Reason: Doctor's Order 1 mg (0.75 mL) subcut QWEEK 3 mL 3RF Coding Level of Care Code Est Pt Level 4 (37565) Complex EM visit Add On G2211 Diagnoses Uncontrolled type 2 diabetes mellitus with hyperglycemia E11.65 Diabetic polyneuropathy associated with type 2 diabetes mellitus E11.42 Diabetes mellitus type: type 2
[2024-08-16 13:46] VITALS: BP 126/68; PULSE 97; BMI 30.9
[2024-08-16 13:57] LABS: Glucose, Whole Blood 194 mg/dL (60-115)
== END 2024-08-16 14:14 | disposition home or self-care (01) ==
PROVIDERS: PCP Nurse Practitioner Family; Visit Provider Physician Assistant Medical
DX: E11.65 Type 2 diabetes mellitus with hyperglycemia (principal); E11.42 Type 2 diabetes mellitus with diabetic polyneuropathy

== ENCOUNTER → 2024-08-16 13:40 | Outpatient (BNVA) | payer OTHER, SELFPAY | PROVIDERS: PCP Nurse Practitioner Family; Visit Provider Physician Assistant Medical | DX: E11.65 Type 2 diabetes mellitus with hyperglycemia (principal); E11.42 Type 2 diabetes mellitus with diabetic polyneuropathy | CPT/HCPCS: 82947; 83036; 99212 ==

== ENCOUNTER 2024-09-27 11:15 | Outpatient (AMB) | payer OTHER, SELFPAY ==
--- NOTE | 2024-09-27 11:24 | A.OFFVIS_ITS ---
Vital Signs 09/27/24 11:26 Height 5 ft 10 in Weight 211 lb 6.773 oz BMI 30.3 BP 108/72 Blood Pressure Location Lt brachial Position Sitting Pulse 90 Pulse Source Pulse Oximeter Intake Visit Reasons: Type II diabetes Intake Note: Patient present today to follow up on Type 2 Diabetes Mellitus. Last Diabetic Eye exam: 05/08/2024 Last Podiatry Visit: Does not see a Busgirl Random Glucose: 115 mg/dl HgA1C: 7.6% 08/16/2024 Weeder Thinner Required: No Accompanied by: Self / Same As Patient Allergies No Known Allergies [No Known Allergies*] Allergy (Verified 09/27/24 11:30) HPI Comments Details: This is a 54 year old male with a past medical history of Type II DM, HLD and obesity presenting for diabetic management. He was diagnosed 30 years ago. Hemoglobin a1c 08/16/24 is 7.6%. 13% 01/30/24 and decreased to A1c 9.2% on 05/01/24. Reviewed sensor data 71% of the time sensor use > 250 1% 181-249 17% Target range 83% 0% hypoglycemia Average glucose 145 GMI 6.8% Current medication regimen: Toujeo 68 units in the morning, Metformin 1000 mg twice daily, Ozempic 2 mg once weekly. Denies side effects. Lantus discontinued after patient reported scar tissue despite rotating injection sites and medication leaking sometimes. This has resolved on Toujeo. Compliance issues: Patient reports that he does not always take the metformin as prescribed due to his work and meal schedule. Usually eats 2 meals per day. Diet: Patient tries to follow the diabetic diet. Nonsmoker, no alcohol Hypoglycemia: none. Patient reports he has gotten 5 or 6 alerts within the past month for overnight lows in the high 60s treated with granola bars. Hyperglycemia symptoms: none Eye exam: April 2024 @ [facility] Microvascular complications: neuropathy Macrovascular complications: none He takes Lisinopril 5 mg daily for renal protection. He takes Atorvastatin 10 mg at bedtime. ROS: Eyes: No vision changes, blurry vision, double vision Respiratory: No shortness of breath Cardiovascular: No chest pain Gastrointestinal: No anorexia, nausea, vomiting or diarrhea. No abdominal pain Neurologic: No headache, dizziness, syncope Endocrine: No cold or heat intolerance. No polyuria or polydipsia. Physical exam: Constitutional: Alert, in no distress. Neck: Supple, Full range of motion. No lymphadenopathy. No palpable thyroid masses. Respiratory: Clear to auscultation. Cardiovascular: S1 S2 regular. No murmurs. COUNT INCLUDES THE [facility] Medical History Hypertensive retinopathy Diabetes, polyneuropathy Uncontrolled type 2 diabetes mellitus with hyperglycemia Dyslipidemia Sciatica, right side Type 2 diabetes mellitus Surgical History History of esophagogastroduodenoscopy (EGD) H/O colonoscopy Family History Father Colon cancer Alzheimer disease Enlarged prostate Mother Diabetes Social History Housing: House Alcohol intake: never Patient Tobacco Use Status: Never used Tobacco e-Cigarette/Vaping Use: Never Used Second Hand Smoke Exposure: Yes service: No Current occupational status: employed Current occupation: [employer] Current occupational exposures/hazards: No Cognitive needs: No Hearing needs: No Vision needs: No Physical Exam Vital Signs: Last Vital Signs Pulse 90 09/27/24 11:26 BP 108/72 09/27/24 11:26 BMI result Body Mass Index 30.3 Results Reviewed Results Reviewed: Laboratory Last Values Glucose (Clinic) 115 mg/dL (60-115) 09/27/24 11:36 Laboratory Tests 11/02/22 03/03/23 08/17/23 13:11 13:50 10:19 Creatinine 1.04 Estimated GFR > 60 Hgb A1c (Clinic) 10.6 H Triglycerides 119 Cholesterol 127 LDL Cholesterol, Calc 67 HDL Cholesterol 37 Urine Creatinine 252.07 Urine Microalbumin 17.0 Microalb/Creat Ratio 6.7 01/30/24 14:53 Creatinine Estimated GFR Hgb A1c (Clinic) 13.0 H Triglycerides Cholesterol LDL Cholesterol, Calc HDL Cholesterol Urine Creatinine Urine Microalbumin Microalb/Creat Ratio Assessment & Plan Assessment & Plan (1) Uncontrolled type 2 diabetes mellitus with hyperglycemia: Code(s): E11.65 - Type 2 diabetes mellitus with hyperglycemia Category: Medical (2) Diabetes, polyneuropathy: Code(s): E11.42 - Type 2 diabetes mellitus with diabetic polyneuropathy Category: Medical Qualifiers: Diabetes mellitus type: type 2 Qualified Code(s): E11.42 - Type 2 diabetes mellitus with diabetic polyneuropathy Plan In summary this is a 54 year old male with controlled Type II DM per CGM data. Decrease Toujeo to 64 units. Continue metformin but change to extended release and patient can take 2000 mg once daily. Continue Ozempic 2 mg weekly. Podiatry exam is scheduled. Eye exam is up-to-date. Follow up in 6 weeks to review CGM. Treatment of hypoglycemia reviewed. Reminded patient to have his lab orders completed. Orders: Orders Comprehensive Met. Panel Today E11.42 - Type 2 diabetes mellitus with diabetic polyneuropathy Medications: New metformin ER 2,000 mg (4 x 500 mg) PO DAILY 90 days 360 tabs 3RF Changed From Toujeo Max U-300 SoloStar (insulin glargine U-300 conc) 68 units (0.2267 mL) subcut DAILY 8 mL 5RF NS To Toujeo Max U-300 SoloStar (insulin glargine U-300 conc) 64 units (0.2133 mL) subcut DAILY 8 mL 5RF NS Discontinued metformin Discontinued Reason: Doctor's Order 1,000 mg PO BID 180 tabs 3RF Coding Level of Care Code Est Pt Level 4 (40541) Complex EM visit Add On G2211 Diagnoses Uncontrolled type 2 diabetes mellitus with hyperglycemia E11.65 Diabetic polyneuropathy associated with type 2 diabetes mellitus E11.42 Diabetes mellitus type: type 2
[2024-09-27 11:26] VITALS: BP 108/72; PULSE 90; BMI 30.3
[2024-09-27 11:41] LABS: Glucose, Whole Blood 115 mg/dL (60-115)
== END 2024-09-27 12:05 | disposition home or self-care (01) ==
PROVIDERS: PCP Nurse Practitioner Family; Visit Provider Physician Assistant Medical
DX: E11.65 Type 2 diabetes mellitus with hyperglycemia (principal); E11.42 Type 2 diabetes mellitus with diabetic polyneuropathy

== ENCOUNTER → 2024-09-27 11:15 | Outpatient (BNVA) | payer OTHER, SELFPAY | PROVIDERS: PCP Nurse Practitioner Family; Visit Provider Physician Assistant Medical | DX: E11.65 Type 2 diabetes mellitus with hyperglycemia (principal); E11.42 Type 2 diabetes mellitus with diabetic polyneuropathy; Z79.84 Long term (current) use of oral hypoglycemic drugs | CPT/HCPCS: 82947; 99212 ==

== ENCOUNTER 2024-11-15 10:54 | Outpatient (AMB) | payer SELFPAY ==
--- NOTE | 2024-11-15 11:02 | A.OFFVIS_ITS ---
Vital Signs 11/15/24 11:10 Height 5 ft 10 in Weight 203 lb 7.787 oz BMI 29.2 BP 90/54 L Blood Pressure Location Lt brachial Position Sitting Pulse 98 Pulse Source Pulse Oximeter Pulse Oximetry (%) 99 Oxygen Delivery Method Room Air Intake Visit Reasons: T2DM Intake Note: Patient present today to follow up on Type 2 Diabetes Mellitus. Last Diabetic Eye exam: May 08, 2024 Last Podiatry Visit: Does not see a Deputy Jailer Random Glucose: 157 mg/dl HgA1C: 6.8% 11/15/24 Link Trainer Mechanic Required: No Accompanied by: Self / Same As Patient Allergies No Known Allergies [No Known Allergies*] Allergy (Verified 11/15/24 11:11) HPI Comments Details: This is a 54 year old male with a past medical history of Type II DM, HLD and obesity presenting for diabetic management. He was diagnosed 30 years ago. Hemoglobin a1c 6.8% a1c today. Reviewed sensor data 94% of the time sensor use > 250 0% 181-249 16% Target range 84% 0% hypoglycemia Average glucose 145 GMI 6.8% Current medication regimen: Toujeo 64 units in the morning, Metformin ER 2000 mg daily, Ozempic 2 mg once weekly. Denies side effects. Past medication: Lantus discontinued after patient reported scar tissue despite rotating injection sites and medication leaking sometimes. This has resolved on Toujeo. Compliance issues: Has missed some doses of medications due to his work schedule, but overall he is doing well. He is going to work on consistency. Diet: Patient tries to follow the diabetic diet. Nonsmoker, no alcohol He is walking a lot. He has lost weight. Hypoglycemia: none recently Hyperglycemia symptoms: none Eye exam: April 2024 @ [facility] Microvascular complications: neuropathy Macrovascular complications: none He takes Lisinopril 5 mg daily for renal protection. His blood pressures have been running lower. He takes Atorvastatin 10 mg at bedtime. ROS: Eyes: No vision changes, blurry vision, double vision Respiratory: No shortness of breath Cardiovascular: No chest pain Gastrointestinal: No anorexia, nausea, vomiting or diarrhea. No abdominal pain Neurologic: No headache, dizziness, syncope Endocrine: No cold or heat intolerance. No polyuria or polydipsia. Physical exam: Constitutional: Alert, in no distress. Neck: Supple, Full range of motion. No lymphadenopathy. No palpable thyroid masses. Respiratory: Clear to auscultation. Cardiovascular: S1 S2 regular. No murmurs. Right foot: Warm and well perfused. No clubbing, cyanosis or edema. Intact DP pulse. Decreased vibratory sensation. Intact sensation to monofilament. No open wound. Left foot: Warm and well perfused. No clubbing, cyanosis or edema. Intact DP pulse. Decreased vibratory sensation. Intact sensation to monofilament. No open wound. [facility] Medical History (Updated 11/15/24 @ 12:38 by BRITANY Ocampo) Controlled type 2 diabetes with neuropathy Hypertensive retinopathy Diabetes, polyneuropathy Uncontrolled type 2 diabetes mellitus with hyperglycemia Dyslipidemia Sciatica, right side Type 2 diabetes mellitus Surgical History History of esophagogastroduodenoscopy (EGD) H/O colonoscopy Family History Father Colon cancer Alzheimer disease Enlarged prostate Mother Diabetes Social History Housing: House Alcohol intake: never Patient Tobacco Use Status: Never used Tobacco e-Cigarette/Vaping Use: Never Used Second Hand Smoke Exposure: Yes service: No Current occupational status: employed Current occupation: [employer] Current occupational exposures/hazards: No Cognitive needs: No Hearing needs: No Vision needs: No Physical Exam Vital Signs: Last Vital Signs Pulse 98 11/15/24 11:10 BP 90/54 L 11/15/24 11:10 Pulse Ox 99 11/15/24 11:10 Oxygen Delivery Method Room Air 11/15/24 11:10 BMI result Body Mass Index 29.2 Office Procedures Glucose Monitoring Details Details: see HPI Procedure code (CPT) selection complete Results AMB Hemoglobin A1c AMB Hemoglobin A1c 6.8 % Last Edit by IVY Urena on 11/15/24 11:34 Results Reviewed Results Reviewed: Laboratory Last Values Glucose (Clinic) 157 mg/dL (60-115) H 11/15/24 11:18 Hgb A1c (Clinic) 6.8 % (4.0-6.0) H 11/15/24 11:29 Laboratory Tests 11/02/22 03/03/23 08/17/23 13:11 13:50 10:19 Creatinine 1.04 Estimated GFR > 60 Hgb A1c (Clinic) 10.6 H Triglycerides 119 Cholesterol 127 LDL Cholesterol, Calc 67 HDL Cholesterol 37 Urine Creatinine 252.07 Urine Microalbumin 17.0 Microalb/Creat Ratio 6.7 01/30/24 14:53 Creatinine Estimated GFR Hgb A1c (Clinic) 13.0 H Triglycerides Cholesterol LDL Cholesterol, Calc HDL Cholesterol Urine Creatinine Urine Microalbumin Microalb/Creat Ratio Assessment & Plan Assessment & Plan (1) Controlled type 2 diabetes with neuropathy: Code(s): E11.40 - Type 2 diabetes mellitus with diabetic neuropathy, unspecified Category: Medical Plan In summary this is a 54 year old male with controlled Type II DM. Complications of diabetes and diabetic diet reinforced. Continue Toujeo to 64 units. Continue metformin extended release 2000 mg daily. Continue Ozempic 2 mg weekly. Treatment of hypoglycemia reviewed. Reminded patient to have his lab orders completed. Reduce lisinopril to 2.5 mg daily. Follow up in 3 months. Orders: Orders AMB Hemoglobin A1c Today E11.42 - Type 2 diabetes mellitus with diabetic polyneuropathy AMB Glucose Monitoring Today E11.9 - Type 2 diabetes mellitus without complic ations Platelet Count Today E11.65 - Type 2 diabetes mellitus with hyperglycemia Medications: New blood-glucose sensor (FreeStyle Ramonita 3 Plus Sensor device) Apply 1 new sensor every 15 days as directed to monitor blood glucose continuously. 2 ea 11RF E11.9 - Type 2 diabetes mellitus without complications lisinopril 2.5 mg PO DAILY 90 tabs 3RF Discontinued blood-glucose sensor (FreeStyle Ramonita 3 Sensor device) Discontinued Reason: Doctor's Order apply new sensor every 14 days as directed 2 ea 11RF lisinopril Discontinued Reason: Doctor's Order 5 mg PO DAILY 90 days 90 tabs 1RF Coding Level of Care Code Est Pt Level 4 (28678) Diagnoses Controlled type 2 diabetes with neuropathy E11.40
[2024-11-15 11:10] VITALS: BP 90/54; PULSE 98; O2SAT 99; BMI 29.2
[2024-11-15 11:38] LABS: Glucose, Whole Blood 157 mg/dL (60-115)
== END 2024-11-15 12:22 | disposition home or self-care (01) ==
LOC: HO.ENCR 10:55
PROVIDERS: PCP Nurse Practitioner Family; Visit Provider Physician Assistant Medical
DX: E11.42 Type 2 diabetes mellitus with diabetic polyneuropathy (principal); E11.40 Type 2 diabetes mellitus with diabetic neuropathy, unspecified

== ENCOUNTER → 2024-11-15 10:54 | Outpatient (BNVA) | payer OTHER, SELFPAY | PROVIDERS: PCP Nurse Practitioner Family; Visit Provider Physician Assistant Medical | DX: E11.40 Type 2 diabetes mellitus with diabetic neuropathy, unspecified (principal); Z79.4 Long term (current) use of insulin; Z79.84 Long term (current) use of oral hypoglycemic drugs | CPT/HCPCS: 82947; 83036; 99212 ==

== ENCOUNTER 2025-05-09 14:30 | Outpatient (AMB) | payer MEDICAID, SELFPAY ==
--- NOTE | 2025-05-09 14:40 | A.OFFVIS_ITS ---
Vital Signs 05/09/25 14:46 Height 5 ft 10 in Weight 195 lb 8.8 oz BMI 28.1 BP 102/64 Blood Pressure Location Rt brachial Position Sitting Pulse 82 Pulse Source Pulse Oximeter Pulse Oximetry (%) 97 Oxygen Delivery Method Room Air Intake Visit Reasons: T2DM Intake Note: Patient present today to follow up on Type 2 Diabetes Mellitus. Last Diabetic Eye exam: May 08, 2024, has an appointment this month Last Podiatry Visit: Does not see a Park Keeper Random Glucose: 152 mg/dl HgA1C: 8.3% 05/09/2025 Automobile Rental Agent Required: No Accompanied by: Spouse Allergies No Known Allergies (No Known Allergies*) Allergy (Verified 05/09/25 14:51) Medication List - Last Reconciled 05/09/25 by BRITANY Ocampo alcohol swabs (Alcohol Prep Pads) 1 pad topical BID atorvastatin 10 mg PO BEDTIME 90 days blood sugar diagnostic (FreeStyle Lite Strips) Use to check blood sugar twice daily, fasting blood sugar in morning and a random sugar during the day blood-glucose meter (FreeStyle Lite Meter kit) Use to check blood sugar twice daily, fasting blood sugar in morning and a random sugar during the day blood-glucose sensor (FreeStyle Ramonita 3 Plus Sensor device) Apply 1 new sensor every 15 days as directed to monitor blood glucose continuously. blood-glucose,fiction and nonfiction prose writer,cont (FreeStyle Ramonita 3 [place]) as directed lancets (FreeStyle Lancets) Use to check blood sugar twice daily, fasting blood sugar in morning and a random sugar during the day lisinopril 2.5 mg PO DAILY metformin ER 2,000 mg (4 x 500 mg) PO DAILY 90 days multivitamin (Daily Multi-Vitamin tablet) 1 tab PO DAILY pen needle, diabetic (BD Sophia 2nd Gen Pen Needle) As directed semaglutide (Ozempic) 2 mg (0.75 mL) subcut QWEEK Toujeo Max U-300 SoloStar (insulin glargine U-300 conc) 64 units (0.2133 mL) subcut DAILY NS HPI Comments Details: This is a 54 year old male with a past medical history of Type II DM, HLD and obesity presenting for diabetic management. He was last seen October 2024. He was diagnosed 30 years ago. Hemoglobin a1c is 8.3% 05/09/2025 up from 6.8%. He just received new sensors from the pharmacy. He does not have a glucometer with him today. Current medication regimen: Toujeo 64 units in the morning, Metformin ER 2000 mg daily, Ozempic 2 mg once weekly. Denies side effects. He ran out of Ozempic a month ago. Past medication: Lantus discontinued after patient reported scar tissue despite rotating injection sites and medication leaking sometimes. This has resolved on Toujeo. Jardiance caused yeast infection/UTI. Compliance issues: Has missed some doses of medications due to his work schedule, but overall he is doing well. He is working on consistency. Diet: He follows a diabetic diet. Nonsmoker, no alcohol He is walking a lot. Hypoglycemia: none recently Hyperglycemia symptoms: none Eye exam: scheduled 05/13/25 Microvascular complications: neuropathy Macrovascular complications: none He takes Lisinopril 2.5 mg daily for renal protection. He takes Atorvastatin 10 mg at bedtime. ROS: Eyes: No vision changes, blurry vision, double vision Respiratory: No shortness of breath Cardiovascular: No chest pain Gastrointestinal: No anorexia, nausea, vomiting or diarrhea. No abdominal pain Neurologic: No headache, dizziness, syncope Endocrine: No cold or heat intolerance. No polyuria or polydipsia. Physical exam: Constitutional: Alert, in no distress. Neck: Supple, Full range of motion. No lymphadenopathy. No palpable thyroid masses. Respiratory: Clear to auscultation. Cardiovascular: S1 S2 regular. No murmurs. [facility] Medical History (Updated 05/09/25 @ 15:24 by BRITANY Ocampo) Uncontrolled type 2 diabetes mellitus with hyperglycemia Controlled type 2 diabetes with neuropathy Hypertensive retinopathy Diabetes, polyneuropathy Dyslipidemia Sciatica, right side Type 2 diabetes mellitus Surgical History History of esophagogastroduodenoscopy (EGD) H/O colonoscopy Family History Father Colon cancer Alzheimer disease Enlarged prostate Mother Diabetes Social History Housing: House Alcohol intake: never Patient Tobacco Use Status: Never used Tobacco e-Cigarette/Vaping Use: Never Used Second Hand Smoke Exposure: Yes service: No Current occupational status: employed 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 Current occupational exposures/hazards: No Cognitive needs: No Hearing needs: No Vision needs: No Physical Exam Vital Signs: Last Vital Signs Pulse 82 05/09/25 14:46 BP 102/64 05/09/25 14:46 Pulse Ox 97 05/09/25 14:46 Oxygen Delivery Method Room Air 05/09/25 14:46 BMI result Body Mass Index 28.1 Results AMB Hemoglobin A1c AMB Hemoglobin A1c 8.3 % Last Edit by IVY Urena on 04/28 15:06 Results Reviewed Results Reviewed: Laboratory Last Values Glucose (Clinic) 152 mg/dL (60-115) H 05/09/25 14:55 Hgb A1c (Clinic) 8.3 % (4.0-6.0) H 05/09/25 14:59 Laboratory Tests 11/02/22 03/03/23 08/17/23 13:11 13:50 10:19 Creatinine 1.04 Estimated GFR > 60 Hgb A1c (Clinic) 10.6 H Triglycerides 119 Cholesterol 127 LDL Cholesterol, Calc 67 HDL Cholesterol 37 Urine Creatinine 252.07 Urine Microalbumin 17.0 Microalb/Creat Ratio 6.7 01/30/24 14:53 Creatinine Estimated GFR Hgb A1c (Clinic) 13.0 H Triglycerides Cholesterol LDL Cholesterol, Calc HDL Cholesterol Urine Creatinine Urine Microalbumin Microalb/Creat Ratio Assessment & Plan Assessment & Plan (1) Uncontrolled type 2 diabetes mellitus with hyperglycemia: Code(s): E11.65 - Type 2 diabetes mellitus with hyperglycemia Category: Medical Plan In summary this is a 54 year old male with uncontrolled type 2 diabetes. This is in part due to noncompliance. I sent refills on Ozempic to the pharmacy. Continue 2 mg weekly. Continue Toujeo to 64 units. Reinforced consistency with this medication. Continue metformin extended release 2000 mg daily. Treatment of hypoglycemia reviewed. Reminded patient to have his lab orders completed. Continue lisinopril 2.5 mg daily for renal protection. Eye exam is scheduled this month. Patient will start using CGM again. He just picked up the sensors. Return in 6 weeks for re-evaluation of type 2 diabetes. Orders: Orders AMB Hemoglobin A1c Today E11.40 - Type 2 diabetes mellitus with diabetic neuropathy, unspecified Microalbumin, Random (w Creat) Today E11.65 - Type 2 diabetes mellitus with hyperglycemia, E11.9 - Type 2 diabetes mellitus without complications Creatinine Today E11.65 - Type 2 diabetes mellitus with hyperglycemia, E11.9 - Type 2 diabetes mellitus without complications Lipid Panel Today E11.65 - Type 2 diabetes mellitus with hyperglycemia, E78.5 - Hyperlipidemia, unspecified TSH reflex Free T4 Today E11.65 - Type 2 diabetes mellitus with hyperglycemia Vitamin B12 Today E11.65 - Type 2 diabetes mellitus with hyperglycemia, Z91.89 - Other specified personal risk factors, not elsewhere classified Alanine Aminotransferase Today E11.65 - Type 2 diabetes mellitus with hyperglycemia, R79.89 - Other specified abnormal findings of blood chemistry Aspartate Amino Transferase Today E11.65 - Type 2 diabetes mellitus with hyperglycemia Platelet Count Today E11.65 - Type 2 diabetes mellitus with hyperglycemia, E11.9 - Type 2 diabetes mellitus without complications Medications: Refilled semaglutide (Ozempic) 2 mg (0.75 mL) subcut QWEEK 3 mL 3RF Coding Level of Care Code Est Pt Level 4 (95275) Complex EM visit Add On G2211 Diagnoses Uncontrolled type 2 diabetes mellitus with hyperglycemia E11.65
[2025-05-09 14:46] VITALS: BP 102/64; PULSE 82; O2SAT 97; BMI 28.1
[2025-05-09 15:01] LABS: Glucose, Whole Blood 152 mg/dL (60-115)
== END 2025-05-09 15:34 | disposition home or self-care (01) ==
LOC: HO.ENCR 14:31
PROVIDERS: PCP Nurse Practitioner Family; Visit Provider Physician Assistant Medical
DX: E11.40 Type 2 diabetes mellitus with diabetic neuropathy, unspecified (principal); E11.65 Type 2 diabetes mellitus with hyperglycemia

== ENCOUNTER → 2025-05-09 14:30 | Outpatient (BNVA) | payer OTHER, SELFPAY | PROVIDERS: PCP Nurse Practitioner Family; Visit Provider Physician Assistant Medical | DX: E11.65 Type 2 diabetes mellitus with hyperglycemia (principal) | CPT/HCPCS: 82947; 83036; 99212 ==

== ENCOUNTER 2025-06-13 12:32 | Outpatient (REF) | payer OTHER, SELFPAY ==
[2025-06-13 13:16] LABS: Appearance Urine Clear; Glucose Urine UA 100 mg/dL (Negative); PH 6.0 (5.0-9.0); Specific Gravity - Urine 1.015 (1.005-1.025)
[2025-06-13 13:17] LABS: MANUAL DIFF FLAG NO
[2025-06-13 13:58] LABS: Hematocrit 44.2 % (42.0-52.0); Hemoglobin 15.2 g/dl (14.0-18.0); Imm Gran Abs Auto 0.02 X10*3/uL (0.00-0.03); Imm Gran Pct Auto 0.3 % (0.0-0.4); Lymphocytes Absolute Auto 3.0 X10*3/uL (1.2-4.9); Mean Corpuscular HGB Conc 34.4 g/dl (31.0-36.0); Mean Corpuscular Hemoglobin 31.5 pg (27.0-33.0); Mean Corpuscular Volume 91.5 fL (80.0-98.0); NRBC Abs Auto 0.000 X10*3/uL (0.0-0.012); NRBC Pct Auto 0.0 /100WBC (0.0-0.2); Platelet Count 289 X10*3/uL (160-400); Red Blood Count 4.83 X10*6/uL (4.60-5.80); White Blood Count 7.8 X10*3/uL (4.8-10.8)
[2025-06-13 16:23] LABS: Alanine Aminotransferase 38 U/L (0-40); Albumin Level 4.7 g/dL (3.5-5.0); Anion Gap 12 (12-20); Aspartate Amino Transferase 31 U/L (5-37); Blood Urea Nitrogen 19 mg/dL (9-16); Calcium 9.4 mg/dL (8.4-10.2); Carbon Dioxide 27 mmol/L (22-29); Chloride 106 mmol/L (96-108); Cholesterol 142 mg/dL (<200); Estimated Glomerular Filt Rate > 60; HDL Cholesterol 38 mg/dL (>40); Potassium 4.1 mmol/L (3.3-5.1); Sodium 141 mmol/L (135-145); Total Protein 7.1 g/dL (6.5-8.0); Triglycerides 109 mg/dL (<150)
[2025-06-13 18:07] LABS: Alkaline Phosphatase 59 U/L (39-117)
== END 2025-06-13 12:33 | disposition home or self-care (01) ==
LOC: HO.10HDL 12:32
PROVIDERS: Physician Assistant Medical; Visit Provider Nurse Practitioner Family
DX: Z12.5 Encounter for screening for malignant neoplasm of prostate (principal); E55.9 Vitamin D deficiency, unspecified; E11.65 Type 2 diabetes mellitus with hyperglycemia; E11.42 Type 2 diabetes mellitus with diabetic polyneuropathy
CPT/HCPCS: 36415; 80053; 80061; 81003; 82043; 82306; 82570; 84153; 84443; 85025

== ENCOUNTER 2025-06-17 12:53 | Outpatient (AMB) | payer OTHER, SELFPAY ==
[2025-06-17 12:57] VITALS: BP 124/67; PULSE 87; O2SAT 97; BMI 28.6
--- NOTE | 2025-06-17 12:57 | A.OFFVIS_ITS ---
Vital Signs 06/17/25 12:57 Height 5 ft 10 in Weight 199 lb 4.766 oz BMI 28.6 BP 124/67 Blood Pressure Location Lt brachial Position Sitting Pulse 87 Pulse Source Pulse Oximeter Pulse Oximetry (%) 97 Oxygen Delivery Method Room Air Intake Visit Reasons: Type II Diabetes Intake Note: Patient present today to follow up on Type 2 Diabetes Mellitus.? Last Diabetic Eye exam: last month at [facility]. Last Podiatry Visit: Does not see a Clinical Genetics Laboratory Chief Random Glucose: 153? mg/dl HgA1C: 8.3% 05/09/2025 Shared Services And Outsourcing Manager Required: No Accompanied by: Spouse Allergies No Known Allergies (No Known Allergies*) Allergy (Verified 06/17/25 13:03) Medication List - Last Reconciled 06/17/25 by BRITANY Ocampo alcohol swabs (Alcohol Prep Pads) 1 pad topical BID atorvastatin 10 mg PO BEDTIME blood sugar diagnostic (FreeStyle Lite Strips) Use to check blood sugar twice daily, fasting blood sugar in morning and a random sugar during the day blood-glucose meter (FreeStyle Lite Meter kit) Use to check blood sugar twice daily, fasting blood sugar in morning and a random sugar during the day blood-glucose sensor (FreeStyle Ramonita 3 Plus Sensor device) Apply 1 new sensor every 15 days as directed to monitor blood glucose continuously. blood-glucose,warehouse receiver,cont (FreeStyle Ramonita 3 [place]) as directed diabetic supplies, miscellan. As directed insulin glargine U-300 conc (Toujeo Max U-300 SoloStar) 62 units subcut DAILY lancets (FreeStyle Lancets) Use to check blood sugar twice daily, fasting blood sugar in morning and a random sugar during the day lisinopril 2.5 mg PO DAILY metformin ER 2,000 mg (4 x 500 mg) PO DAILY 90 days multivitamin (Daily Multi-Vitamin tablet) 1 tab PO DAILY pen needle, diabetic (BD Sophia 2nd Gen Pen Needle) As directed semaglutide (Ozempic) 2 mg (0.75 mL) subcut QWEEK HPI Comments Details: This is a 54 year old male with a past medical history of Type II DM, HLD and obesity presenting for diabetic management. He was diagnosed 30 years ago. Hemoglobin a1c is 8.3% 05/09/2025. This was this is secondary to noncompliance with medications and running out of Ozempic. Reviewed CGM data for the past 14 days: >250 0% 181-250 12% 70-180 86% 2 % low 0% very low GMI 6.5%. 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 He had a few low glucose events within the past couple of weeks, but he denies symptoms except for 1 episode when he felt shaky and 8 of peanut butter cup. Current medication regimen: Toujeo 64 units in the morning, Metformin ER 2000 mg daily, Ozempic 2 mg once weekly. Denies side effects. Past medication: Lantus discontinued after patient reported scar tissue despite rotating injection sites and medication leaking sometimes. Jardiance caused yeast infection/UTI. Diet: He follows a diabetic diet. Nonsmoker, no alcohol He is walking a lot. Hypoglycemia: none recently Hyperglycemia symptoms: none Eye exam: done 05/13/25, no complications per patient Microvascular complications: neuropathy Macrovascular complications: none He takes Lisinopril 2.5 mg daily for renal protection. He takes Atorvastatin 10 mg at bedtime. LDL is at goal less than 100. ROS: Eyes: No vision changes, blurry vision, double vision Respiratory: No shortness of breath Cardiovascular: No chest pain Gastrointestinal: No anorexia, nausea, vomiting or diarrhea. No abdominal pain Neurologic: No headache, dizziness, syncope Endocrine: No cold or heat intolerance. No polyuria or polydipsia. Physical exam: Constitutional: Alert, in no distress. Neck: Supple, Full range of motion. No lymphadenopathy. No palpable thyroid masses. Respiratory: Clear to auscultation. Cardiovascular: S1 S2 regular. No murmurs. Feet: Warm and well perfused. Intact DP pulses. No open wounds. There is some mild nail fungus on the right great toenail. [facility] Medical History (Updated 06/17/25 @ 13:53 by BRITANY Ocampo) Hyperlipidemia Uncontrolled type 2 diabetes mellitus with hyperglycemia Controlled type 2 diabetes with neuropathy Hypertensive retinopathy Diabetes, polyneuropathy Dyslipidemia Sciatica, right side Type 2 diabetes mellitus Surgical History History of esophagogastroduodenoscopy (EGD) H/O colonoscopy Family History Father Colon cancer Alzheimer disease Enlarged prostate Mother Diabetes Social History Housing: House Alcohol intake: never Patient Tobacco Use Status: Never used Tobacco e-Cigarette/Vaping Use: Never Used Second Hand Smoke Exposure: Yes service: No Current occupational status: employed 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 Current occupational exposures/hazards: No Cognitive needs: No Hearing needs: No Vision needs: No Physical Exam Vital Signs: Last Vital Signs Pulse 87 06/17/25 12:57 BP 124/67 06/17/25 12:57 Pulse Ox 97 06/17/25 12:57 Oxygen Delivery Method Room Air 06/17/25 12:57 BMI result Body Mass Index 28.6 Office Procedures Glucose Monitoring Details Details: See [facility] [address] - Glucose monitoring, continuous-physician I&R Procedure code (CPT) selection complete Results Reviewed Results Reviewed: Laboratory Last Values Glucose (Clinic) 153 mg/dL (60-115) H 06/17/25 13:10 Laboratory Tests 01/30/24 05/01/24 06/13/25 14:53 12:15 12:40 Creatinine 0.86 0.91 Estimated GFR > 60 > 60 Hgb A1c (Clinic) 13.0 H Hemoglobin A1c % 9.2 H AST 24 31 ALT 27 38 Alkaline Phosphatase 51 Triglycerides 90 109 Cholesterol 110 142 LDL Cholesterol, Calc 56 83 HDL Cholesterol 36 L 38 L 25-OH Vitamin D Total 37.9 TSH 2.13 2.91 Urine Creatinine 103.52 80.78 Urine Microalbumin 5.0 < 5.0 Microalb/Creat Ratio 4.8 TNP Assessment & Plan Assessment & Plan (1) Uncontrolled type 2 diabetes mellitus with hyperglycemia: Code(s): E11.65 - Type 2 diabetes mellitus with hyperglycemia Category: Medical (2) Hyperlipidemia: Code(s): E78.5 - Hyperlipidemia, unspecified Category: Medical Qualifiers: Hyperlipidemia type: pure hypercholesterolemia Qualified Code(s): E78.00 - Pure hypercholesterolemia, unspecified (3) Diabetes, polyneuropathy: Code(s): E11.42 - Type 2 diabetes mellitus with diabetic polyneuropathy Category: Medical Qualifiers: Diabetes mellitus type: type 2 Qualified Code(s): E11.42 - Type 2 diabetes mellitus with diabetic polyneuropathy Plan In summary this is a 54 year old male with Type II diabetes, controlled now per CGM data. Continue Ozempic 2 mg weekly. Reduce Toujeo to 62 units. Continue metformin extended release 2000 mg daily. Treatment of hypoglycemia reviewed. Continue statin for hyperlipidemia. LDL is at goal. Continue lisinopril 2.5 mg daily for renal protection. Eye exam is up-to-date. I gave him a prescription for diabetic shoes. Follow up in 3 months for type 2 diabetes. Orders: Orders AMB Glucose Monitoring Today E11.9 - Type 2 diabetes mellitus without complications Medications: New diabetic supplies, miscellan. As directed 1 ea 0RF E11.9 - Type 2 diabetes mellitus without complications, Z79.4 - terminal carman (current) use of insulin Changed From Toujeo Max U-300 SoloStar (insulin glargine U-300 conc) 64 units (0.2133 mL) subcut DAILY 8 mL 5RF NS To insulin glargine U-300 conc (Toujeo Max U-300 SoloStar) 62 units subcut DAILY Patient Instructions: Decrease toujeo to 62 units daily Metformin ER 2000 mg daily Ozempic 2 mg once weekly If you experience low blood sugar, treat this by eating a chewable fruit candy like skittles or jelly beans (about 8 pieces), 4 ounces (1/2 cup) of fruit juice (not diet), 1 tablespoon of honey or 4 glucose tablets. If your blood sugar is under 50, take double the amount of one of the above. Recheck your blood sugar in 15 minutes. Coding Level of Care Code Est Pt Level 4 (75397) Diagnoses Uncontrolled type 2 diabetes mellitus with hyperglycemia E11.65 Pure hypercholesterolemia E78.00 Hyperlipidemia type: pure hypercholesterolemia Diabetic polyneuropathy associated with type 2 diabetes mellitus E11.42 Diabetes mellitus type: type 2 CPT Codes Details - CPT: 38146 - Glucose monitoring, continuous-physician I&R ([id number])
[2025-06-17 13:17] LABS: Glucose, Whole Blood 153 mg/dL (60-115)
== END 2025-06-17 13:48 | disposition home or self-care (01) ==
LOC: HO.ENCR 12:55
PROVIDERS: PCP Nurse Practitioner Family; Visit Provider Physician Assistant Medical
DX: E11.65 Type 2 diabetes mellitus with hyperglycemia (principal); E78.00 Pure hypercholesterolemia, unspecified; E11.42 Type 2 diabetes mellitus with diabetic polyneuropathy

== ENCOUNTER → 2025-06-17 12:53 | Outpatient (BNVA) | payer OTHER, SELFPAY | PROVIDERS: PCP Nurse Practitioner Family; Visit Provider Physician Assistant Medical | DX: E11.65 Type 2 diabetes mellitus with hyperglycemia (principal); E78.5 Hyperlipidemia, unspecified; E78.00 Pure hypercholesterolemia, unspecified | CPT/HCPCS: 82947; 99212 ==

== ENCOUNTER 2025-08-07 12:33 | Outpatient (AMB) | payer OTHER, SELFPAY ==
[2025-08-07 12:46] VITALS: BP 128/60; PULSE 71; RESP 16; O2SAT 96
--- NOTE | 2025-08-07 12:46 | A.OFFPC_ITS ---
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 He has a history of diabetes mellitus and is followed by an college sports assistant for this condition. He also has associated neuropathy. In terms of health maintenance, his colon screening and PSA are up to date. Recent labs are considered not bad. Health Maintenance - His colon screening is currently up to date. - His Prostate-specific antigen (PSA) sc reening is up to date. - He will receive a flu vaccine today. - eye exam is up to date Social History Review of Systems - Neurological: Reports neuropathy. -denies any si, hi, cp, so, n/v, diarrhe a, constipation, urinary issues Physical Exam General: Cooperative, healthy appearing, comfortable, no acute distress and well developed Orientation: Patient oriented x3 Limitations: No limitations Head: Normal to inspection Ears: Hearing grossly normal bilaterally Nose: Normal external nose present Face and sinus: Normal facial exam Eyes: Appearance normal, both eyes and all related structures Neck: Normal visual inspection and Yes full ROM Respiratory: Normal respiratory effort and able to speak in complete sentences. Clear to auscultation bilaterally Cardiovascular: Regular rate and rhythm. Normal S1 and S2 GI: Normal to inspection. Soft to palpation and nontender : Testicles without masses/lesions and no hernias appreciated Skin: No rashes or lesions noted Neuro: Patient oriented x3, positive sensation with use of monofilament, feet are intact but a little dry Extremities: Normal to inspection Results - Labs: His labs are up to date and are not bad. - PSA: Up to date. Plan 1. Diabetes Mellitus The patient will continue to follow up with Endocrinology for management of his diabetes. 2. Preventative Care A flu vaccine will be administered today. He will be referred back to Gastroenterology for a follow-up colonoscopy. 3. physical exam Discussion Notes I have reviewed the patient's case today during his physical exam. His diabetes is managed by his college sports assistant, whom he will continue to see. His labs and preventative screenings such as colonoscopy and PSA are up to date. Despite this, I will refer him back to Gastroenterology for a follow-up colonoscopy. His physical exam was benign, with clear lungs, normal heart sounds, and intact sensation in his feet despite neuropathy. He will receive his flu vaccine today. Patient Instructions - Get your flu vaccine today. - Continue to see your college sports assistant f or your diabetes care. - We will give you a referral to see a eligio astroenterologist for a follow-up colonoscopy. [facility] Medical History Hyperlipidemia Uncontrolled type 2 diabetes mellitus with hyperglycemia Controlled type 2 diabetes with neuropathy Hypertensive retinopathy Diabetes, polyneuropathy Dyslipidemia Sciatica, right side Type 2 diabetes mellitus Surgical History History of esophagogastroduodenoscopy (EGD) H/O colonoscopy Family History Father Colon cancer Alzheimer disease Enlarged prostate Mother Diabetes Social History Housing: House Alcohol intake: never Patient Tobacco Use Status: Never used Tobacco e-Cigarette/Vaping Use: Never Used Second Hand Smoke Exposure: Yes service: No Current occupational status: employed Current occupation: [employer] Current occupational exposures/hazards: No Cognitive needs: No Hearing needs: No Vision needs: No Questionnaire PHQ-9 Over the last 2 weeks, how often have you been bothered by any of the following problems? 1. Little interest or pleasure in doing things: not at all 2. Feeling down, depressed, or hopeless: not at all 3. Trouble falling or staying asleep, or sleeping too much: not at all 4. Feeling tired or having little energy: not at all 5. Poor appetite or overeating: not at all 6. Feeling bad about yourself - or that you are a failure or have let yourself or your family down: not at all 7. Trouble concentrating on things, such as reading the newspaper or watching television: not at all 8. Moving or speaking so slowly that other people could have noticed. Or the opposite - being so fidgety or restless that you have been moving around a lot more than usual: not at all 9. Thoughts that you would be better off or of hurting yourself in some way: not at all Total score: 0 Source: Developed by Drs. David Farooq, Daniela Buchanan, Johnathan De Souza and colleagues, with an educational sarah from [employer]. Thrive Questionnaire Date Thrive assessed: 09/29/24 Do you have trouble paying your heating and electricity bill?: I choose not to answer this question Do you have trouble taking care of your child, family member or friend?: No Do you have trouble with day-to-day activities such as bathing, preparing meals, shopping, managing finances, etc.?: No Are you currently unemployed and looking for a job?: Yes Are you interested in more education?: No Please select the resources that you would like help with: Job search/training Currently or been in a relationship where the following occur: No concerns reported THRIVE Score: 0 CORINE-7 AMB Questionnaire CORINE-7 Date CORINE - 7 assessed: 05/07/24 Feeling nervous, anxious, or on edge: 0 = Not at all Not being able to stop or control worryin = Not at all Worrying too much about different things: 0 = Not at all Trouble relaxin = Not at all Being so restless that it is hard to sit still: 0 = Not at all Becoming easily annoyed or irritable: 0 = Not at all Feeling afraid as if something awful might happen: 0 = Not at all Total CORINE-7 score (0-4 normal; 5-9 mild; 10-14 moderate; 15-21 severe): 0 Source: Developed by Drs. David Farooq, Daniela Buchanan, Johnathan De Souza and colleagues, with an educational sarah from [employer]. Physical exam (Primary Care) Vital Signs: Last Vital Signs Pulse 71 08/07/25 12:46 Resp 16 08/07/25 12:46 BP 128/60 08/07/25 12:46 Pulse Ox 96 08/07/25 12:46 Oxygen Delivery Method Room Air 08/07/25 12:46 Tobacco/Smoking Status: Tobacco use Status Tobacco use date assessed 08/07/25 08/07/25 12:51 Patient Tobacco Use Status Never used Tobacco 08/07/25 12:51 e-Cigarette/Vaping Use Never Used 08/07/25 12:51 PHQ-9: PHQ-9 Score PHQ-9: Total score 0 08/07/25 12:51 Thrive Assessment: Date of Thrive Assessment Date Thrive assessed 09/29/24 08/07/25 12:51 Currently or been in a relationship where the following occur: No concerns reported Coding Level of Care Code Est Pt Prev Care 40-64y(51370) Diagnoses Screening for colon cancer Z12.11 Encounter for routine adult physical exam with abnormal findings Z00.01 Diabetic polyneuropathy associated with type 2 diabetes mellitus E11.42 Diabetes mellitus type: type 2 Assessment & Plan Assessment & Plan (1) Screening for colon cancer: Code(s): Z12.11 - Encounter for screening for malignant neoplasm of colon Category: Medical (2) Encounter for routine adult physical exam with abnormal findings: Code(s): Z00.01 - Encounter for general adult medical examination with abnormal findings Category: Medical (3) Diabetes, polyneuropathy: Code(s): E11.42 - Type 2 diabetes mellitus with diabetic polyneuropathy Category: Medical Qualifiers: Diabetes mellitus type: type 2 Qualified Code(s): E11.42 - Type 2 diabetes mellitus with diabetic polyneuropathy Plan . Orders: Referrals Gastroenterology Referral Z12.11 - Encounter for screening for malignant neoplasm of colon
== END 2025-08-07 14:14 | disposition home or self-care (01) ==
LOC: HO.HMCC 12:34
PROVIDERS: PCP Nurse Practitioner Family; Visit Provider Nurse Practitioner Family
DX: Z12.11 Encounter for screening for malignant neoplasm of colon (principal); Z00.01 Encounter for general adult medical examination with abnormal findings; E11.42 Type 2 diabetes mellitus with diabetic polyneuropathy; Z13.9 Encounter for screening, unspecified; E11.65 Type 2 diabetes mellitus with hyperglycemia; Z23 Encounter for immunization

== ENCOUNTER → 2025-08-07 12:33 | Outpatient (BNVA) | payer OTHER, SELFPAY | PROVIDERS: PCP Nurse Practitioner Family; Visit Provider Nurse Practitioner Family | DX: Z00.01 Encounter for general adult medical examination with abnormal findings (principal); E11.42 Type 2 diabetes mellitus with diabetic polyneuropathy; Z23 Encounter for immunization; Z13.31 Encounter for screening for depression | CPT/HCPCS: 83036; 90471; 90656; 96127; 99396 ==